=== PATIENT | male | born 1950 | race Caucasian/White ===

== ENCOUNTER → 2016-05-31 | Outpatient (CLI) | payer BC, OTHER ==
[~2016-05-31] MED LIST: ASPEC81 PO; BNC4025 PO
[2016-05-31 09:50] LABS: ESTIMATED AVERAGE GLUCOSE 151 mg/dl; HA1C FLAG Normal (Normal)
[2016-05-31 09:51] LABS: ALT/SGPT 65 U/L (12-78); BLOOD UREA NITROGEN 22 mg/dl (7-18); CARBON DIOXIDE 24 mmol/L (21-32); CHLORIDE 105 mmol/L (98-107); CREATININE 0.97 mg/dl (0.60-1.40); GLUCOSE 131 mg/dl (70-99); POTASSIUM 3.4 mmol/L (3.5-5.1); PROLACTIN 5.66 ng/mL; SODIUM 140 mmol/L (136-145)
[2016-05-31 10:02] LABS: ALB/GLOB RATIO 1.3 (0.9-2); ALKALINE PHOSPHATASE 73 U/L (45-117); AST/SGOT 30 U/L (15-37); CHOLESTEROL 156 mg/dl (0-200); CHOLESTEROL/HDL RATIO 3.3; HDL CHOLESTEROL 47 mg/dl; LDL CHOLESTEROL CALCULATED 91 mg/dl; TRIGLYCERIDES 92 mg/dl (0-150); VERY LOW DENSITY LIPOPROT CALC 18 mg/dl
[2016-05-31 10:09] LABS: RATIO 11.7 mcg/mg (0-30.0)
== END | disposition home or self-care (01) ==
LOC: C.LAB1850 06:59
PROVIDERS: ATTEND Internal Medicine Endocrinology, Diabetes & Metabolism
DX: N52.9 Male erectile dysfunction, unspecified (principal); E11.9 Type 2 diabetes mellitus without complications; E66.9 Obesity, unspecified; E29.1 Testicular hypofunction; E88.81 Metabolic syndrome and other insulin resistance

== ENCOUNTER → 2016-10-01 | Outpatient (CLI) | payer BC, OTHER ==
[2016-10-01 10:06] LABS: ESTIMATED AVERAGE GLUCOSE 108 mg/dl; HA1C FLAG Normal (Normal)
== END | disposition home or self-care (01) ==
LOC: C.LAB1850 06:47
PROVIDERS: ATTEND Internal Medicine Endocrinology, Diabetes & Metabolism
DX: E11.9 Type 2 diabetes mellitus without complications (principal); E78.5 Hyperlipidemia, unspecified

== ENCOUNTER → 2017-04-05 | Outpatient (CLI) | payer BC, OTHER ==
[2017-04-05 09:07] LABS: BASO % 0.4 %; BASO ABS # 0.02 K/uL (0-0.2); COMPLETE YES; EOS % 2.2 %; HEMATOCRIT 47.7 % (42-52); IG% 0.2 %; LYMPH ABS # 1.64 K/uL (1.2-3.4); MEAN CELL VOLUME 85.5 fL (80-100); MEAN CORPUSCULAR HEMOGLOBIN 29.4 pg (25-34); MEAN CORPUSCULAR HGB CONC 34.4 g/dl (32-36); MEAN PLATELET VOLUME 10.5 fL (7.4-10.4); MONO % 8.2 %; PLATELET COUNT 201 K/uL (130-400); RED BLOOD COUNT 5.58 M/uL (4.7-6.1); WHITE BLOOD COUNT 5.46 K/uL (4.8-10.8)
[2017-04-05 09:11] LABS: URINE APPEARANCE CLEAR (CLEAR); URINE BILIRUBIN NEG (NEG); URINE COLOR YELLOW; URINE EPITHELIAL CELL AUTO 0-5 /lpf (0-5); URINE NITRITE NEG (NEG); URINE SPECIFIC GRAVITY 1.023 (1.000-1.030); UROBILINOGEN NEG (NEG)
[2017-04-05 09:13] LABS: MANUAL MICROSCOPIC REQUIRED? NO; REVIEW REQ? NO
[2017-04-05 09:29] LABS: ALT/SGPT 28 U/L (12-78); AST/SGOT 19 U/L (15-37); BLOOD UREA NITROGEN 16 mg/dl (7-18); BUN/CREATININE RATIO 16.4 (10-20); CALCIUM 9.8 mg/dl (8.5-10.1); CARBON DIOXIDE 28 mmol/L (21-32); CHLORIDE 106 mmol/L (98-107); CHOLESTEROL 110 mg/dl (0-200); CREATININE 0.96 mg/dl (0.60-1.40); GLUCOSE 97 mg/dl (70-99); POTASSIUM 3.5 mmol/L (3.5-5.1); SODIUM 141 mmol/L (136-145)
[2017-04-05 09:40] LABS: HDL CHOLESTEROL 54 mg/dl; LDL CHOLESTEROL CALCULATED 39 mg/dl; PROSTATE SPECIFIC ANTIGEN 0.423 ng/ml (0.000-4.000); TRIGLYCERIDES 83 mg/dl (0-150); VERY LOW DENSITY LIPOPROT CALC 17 mg/dl
[2017-04-06 07:33] LABS: ESTIMATED AVERAGE GLUCOSE 114 mg/dl; HA1C FLAG Normal (Normal)
== END | disposition home or self-care (01) ==
LOC: C.LAB 07:05
PROVIDERS: ATTEND Internal Medicine
DX: R42 Dizziness and giddiness (principal)

== ENCOUNTER 2018-07-21 10:35 | Observation (INO) ==
[2018-07-21] MEDS ORDERED: ASPIRIN CHEW 324 MG PO STA (11:33)
[2018-07-21 11:41] LABS: Basophils # (auto) 0.01 K/uL (0-0.2); Basophils % (auto) 0.2 %; Eosinophils # (auto) 0.11 K/uL (0-0.5); Eosinophils % (auto) 1.7 %; Hematocrit (blood only) 44.1 % (42-52); Hemoglobin 15.5 g/dL (14.0-18.0); Immature Granulocytes # (auto) 0.02 K/uL (0.00-0.02); Immature Granulocytes % (auto) 0.3 %; Lymphocytes # (auto) 1.83 K/uL (1.2-3.4); Lymphocytes % (auto) 27.5 %; Mean Corpuscular Hgb Conc 35.1 g/dL (32-36); Mean Corpuscular Volume 80.9 fL (80-100); Mean Platelet Volume 10.3 fL (7.4-10.4); Monocytes % (auto) 7.5 %; Neutrophils # (auto) 4.18 K/uL (1.4-6.5); Neutrophils % (auto) 62.8 %; Platelet Count 261 K/uL (130-400); RDW Coefficient of Variation 13.9 % (11.5-14.5); RDW Standard Deviation 40.9 fL (36.4-46.3); Red Blood Count 5.45 M/uL (4.7-6.1); White Blood Count 6.65 K/uL (4.8-10.8)
[2018-07-21 11:56] LABS: Alanine Aminotransferase 78 U/L (12-78); Aspartate Aminotransferase 41 U/L (15-37); BUN Creatinine Ratio 16.8 (10-20); Blood Urea Nitrogen 22 mg/dl (7-18); Calcium 8.7 mg/dl (8.5-10.1); Carbon Dioxide 25 mmol/L (21-32); Chloride 100 mmol/L (98-107); Creatinine Clr Calc Pharmacy 68.1 ml/min; Est GFR (African American) 65.6; Est GFR (Non-African American) 56.6; Glucose 235 mg/dl (70-99); Potassium 3.4 mmol/L (3.5-5.1); Sodium 135 mmol/L (136-145)
[2018-07-21 12:01] LABS: Albumin Globulin Ratio 1.1 (0.9-2); Alkaline Phosphatase 93 U/L (45-117); Bilirubin,Total 0.7 mg/dl (0.2-1); Globulin 3.6 gm/dl (2.5-4.0); Total Protein 7.6 gm/dl (6.4-8.2); Troponin I < 0.015 ng/ml (0-0.045)
--- NOTE | 2018-07-21 12:16 | XRay Report ---
SINGLE VIEW CHEST CLINICAL HISTORY: Atypical chest pain. Dyspnea. FINDINGS: 2 AP, portable, upright chest radiographs are compared to study dated 01/14/2007. The cardiom ediastinal silhouette is unremarkable. There is left basilar scarring/atelectasis. The lungs and pleu ral spaces are otherwise clear. No pneumothorax is seen. The bony thorax is grossly intact. IMPRESSION: No active disease in the chest. Electronically signed by: Marcello Juarez M.D. 07/21/2018 12:14 PM
--- NOTE | 2018-07-21 14:35 | History & Physical Report ---
Date of Service July 21, 2018 Assessment & Plan (1) Abnormal EKG: Concerning in the setting of sx related in HPI given pt is DM, HTN, HLD at baseline with progressive generalized fatigue He is also using tadalafil for erectile dysfunction and testosterone Trop neg x1, serials pending CXR neg Mg pending Stress ECHO in AM if trops neg Monitor on tele (2) Chest pain: More of a tightness Workup as per above (3) Hypokalemia: Minimal Replace PO and monitor (4) DM type 2 (diabetes mellitus, type 2): Elevated BS Metformin only SSI PRN A1c pending (5) TOBIAS (obstructive sleep apnea): No testing or prior dx Could lead to above sx Overnight pulse ox pending Likely need formal sleep study on d/c (6) Hyperlipidemia: continue home meds Lipid panel in AM Statin use could lead to some of pt's sx Advised for ubiquinol form of CoQ10 as outpt (7) HTN (hypertension): continue home meds (8) Vertigo: Hx of same, monitor (9) DVT prophylaxis: SCDs History of Present Illness Primary Care Provider: Reji Soriano MD 68 y/o M c/o chest tightness and SOB. Pt states he woke up this AM and felt fine. He went to work and around 7am while he was walking across a flat surface he suddenly felt like he had been walking up hill for an extended period. He was SOB, which is unusual for him. Then he developed some L shoulder tightness "like I had pulled a muscle". He rested and this improved. He continued about his day but then again noted the feeling of overexertion with SOB while walking to his break. 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 He has never had anything like this in the past. Pt states that his had some sort of URI and he had this starting last Saturday, just feeling generally run down and congested with a cough. He had no SOB or similar feelings like this. He did stay home from work for a few days. He worked on Saturday but still wasn't feeling quite his usual. He didn't do as much this weekend, but he felt that was due to this viral illness. He had no SOB, overexertion issues, or chest tightness. He states that over the last 6 months he has had a general decline in energy. He used to come home from work and feel like he wanted to do other things around the house, but now he comes home and feels like he could just go to bed. Pt states that he had some sort of abn EKG in 2006. He had a stress test that was WNL at that time. He has no other cardiac hx. He is supposed to take aspirin 81mg, but he does not take this. Pt notes that his BS generally run in the 140s. He had stopped checking BS for a while as they had been stable. While he was sick last week, BS were in the 200s. This has continued into the weekend. states that pt snores quite heavily. She states that there are times when he stops breathing and chokes. She states the snoring is slightly less when in a chair to sleep vs the bed. Pt has a hx of positional vertigo. He had not had issues with this for some time, but started to have episode when turning his head to the left a few weeks ago. This has been intermittent. It has not been present today. Allergies Allergy/AdvReac Type Severity Reaction Status Date / Time pseudoephedrine AdvReac Severe Rash Unverified 07/21/18 12:05 [From [facility]] Home Medications Home Medications Medication Instructions Recorded Confirmed Type allopurinol 300 mg PO QAM 07/21/18 07/21/18 History aspirin 81 mg PO QAM 07/21/18 07/21/18 History atorvastatin 20 mg PO QAM 07/21/18 07/21/18 History ibuprofen [Advil] 200 mg PO QID PRN MDD . 07/21/18 07/21/18 History metformin 1,000 mg PO BID 07/21/18 07/21/18 History olmesartan-hydrochlorothiazide 1 tab PO QAM 07/21/18 07/21/18 History tadalafil 20 mg PO Q3D 07/21/18 07/21/18 History testosterone 2 pump TOPICAL QAM 07/21/18 07/21/18 History Past Med/Surg History Family History Father CVA (cerebral vascular accident) Social History Feels Safe at Home: Yes Smoking Status: Current some day smoker Hx Alcohol Use: No Hx Substance Use: No Review of Systems Pertinent positives and negatives reviewed in HPI--all others negative Physical Exam Vital Signs (Past 24 Hours): Last Vital Signs Temp 36.8 C 07/21/18 10:45 Pulse 67 07/21/18 13:05 Resp 13 07/21/18 13:05 BP 150/95 H 07/21/18 13:05 Pulse Ox 98 07/21/18 11:06 Constitutional: WD/WN, vitals as above Eyes: normal visual ruiz by confrontation and + anicteric sclerae Neck: normal visual inspection and trachea midline Respiratory: normal respiratory effort, lungs clear to auscultation Cardiovascular: Rate/Rhythm: regular rate and regular rhythm Gastrointestinal (Abdomen): Inspection/Auscultation: abdomen not distended Percussion/Palpation: abdomen soft; abdomen nontender Musculoskeletal: Head/Neck/Chest: normocephalic and head atraumatic; normal palpation of chest wall (no TTP along L chest wall into shoulder) negative for edema, peripheral pulses intact Skin: no rashes, warm and dry Neurologic: awake; not confused Speech / Cognition: normal speech Psychiatric: A+Ox3, euthymic affect Results & Data Diagnostic Findings CXR: neg for acute ECG Additional Comments: Bigeminy with ST depression anterolaterally Code Status & VTE Plan Code Status DNR/DNI per pt, is present and agrees VTE Prophylaxis Plan VTE Prophylaxis will be ordered: Yes
--- NOTE | 2018-07-21 16:31 | Emergency Department Note ---
Entered by Armando Mcdowell acting as a scribe for Ryne Selby DO History of Present Illness General Chief complaint: Shortness of Breath/Dyspnea Stated complaint: SOB Source: patient History of Present Illness Provider complaint: shortness of breath Onset (ago): day(s) (today around [id number]) Location: chest Pain Consistency: + other (episode) Maximum Pain Intensity: 3 Quality: + other (shortness of breath) Relieved By: + rest Exacerbated By: + movement Associated symptoms: + denies other symptoms (abdominal pain, diarrhea, urinary symptoms, jaw pain, arm pain) and + other (chest tightness); no nausea/vomiting Treatments prior to arrival: none The patient is a 68 year old male who presents to the Emergency Room with complaints of shortness of breath that started around [id number] this morning. The patient reports that he states he was walking around this morning and noticed he was breathing harder than he normally would. He further reports a tightness in his chest, but denies any pain. He reports frequent burping as well after having a bad of peanuts and water in the morning. He denies ever experiencing this before. The patient also denies any arm pain, jaw pain, abdominal pain, nausea, vomiting, diarrhea, or urinary symptoms. The patient admits to a medical history of diabetes, hypertension, and high cholesterol. He denies any history of cardiac issues including any stent placement. The patient reports that rest alleviated his pain, but states that exertion exacerbates his pain. He denies taking any aspirin today. The patient reports smoking cigars occasionally. Home Medications Home Medications Medication Instructions Recorded Confirmed Type allopurinol 300 mg PO QAM 07/21/18 07/21/18 History aspirin 81 mg PO QAM 07/21/18 07/21/18 History atorvastatin 20 mg PO QAM 07/21/18 07/21/18 History ibuprofen [Advil] 200 mg PO QID PRN MDD . 07/21/18 07/21/18 History metformin 1,000 mg PO BID 07/21/18 07/21/18 History olmesartan-hydrochlorothiazide 1 tab PO QAM 07/21/18 07/21/18 History tadalafil 20 mg PO Q3D 07/21/18 07/21/18 History testosterone 2 pump TOPICAL QAM 07/21/18 07/21/18 History Allergies Allergy/AdvReac Type Severity Reaction Status Date / Time pseudoephedrine AdvReac Severe Rash Unverified 07/21/18 12:05 [From [facility]] Past Med/Surg History Medical History DM type 2 (diabetes mellitus, type 2) HTN (hypertension) Hyperlipidemia Family History Father CVA (cerebral vascular accident) Social History Feels Safe at Home: Yes Smoking Status: Current some day smoker Hx Alcohol Use: No Hx Substance Use: No Review of Systems See HPI for pertinent positives & negatives. and A total of 10 systems reviewed and were otherwise negative Physical Exam Vital Signs Vital Signs - 24 hr 07/21/18 10:45 07/21/18 10:54 07/21/18 11:00 Temperature 36.8 C Temperature Source Oral Sepsis New/Unexplained Change in Mental Status No Sepsis Action Taken by Nursing No Action Required Pulse Rate 86 86 85 Pulse Rhythm Regular Pulse Strength Normal Respiratory Rate 20 19 14 Respiratory Effort / Characteristics Non-Labored Spontaneous Respiratory Depth Normal Respiratory Pattern Regular Blood Pressure 140/82 146/84 H Blood Pressure Mean 101 104 Pulse Oximetry 97 Oxygen Delivery Method Room Air 07/21/18 11:04 07/21/18 11:06 07/21/18 11:30 Temperature Temperature Source Oral Sepsis New/Unexplained Change in Mental Status Sepsis Action Taken by Nursing Pulse Rate 82 Pulse Rhythm Pulse Strength Respiratory Rate 24 Respiratory Effort / Characteristics Non-Labored Respiratory Depth Normal Respiratory Pattern Regular Blood Pressure Blood Pressure Mean Pulse Oximetry 98 Oxygen Delivery Method Room Air Room Air 07/21/18 11:33 07/21/18 12:00 07/21/18 12:30 Temperature Temperature Source Sepsis New/Unexplained Change in Mental Status Sepsis Action Taken by Nursing Pulse Rate 74 73 Pulse Rhythm Pulse Strength Respiratory Rate 18 16 Respiratory Effort / Characteristics Respiratory Depth Respiratory Pattern Blood Pressure Blood Pressure Mean Pulse Oximetry Oxygen Delivery Method Room Air 07/21/18 13:00 07/21/18 13:05 07/21/18 15:42 Temperature Temperature Source Sepsis New/Unexplained Change in Mental Status Sepsis Action Taken by Nursing Pulse Rate 64 67 61 Pulse Rhythm Pulse Strength Respiratory Rate 11 L 13 18 Respiratory Effort / Characteristics Respiratory Depth Respiratory Pattern Blood Pressure 150/95 H 129/74 Blood Pressure Mean 113 Pulse Oximetry 97 Oxygen Delivery Method Room Air GENERAL: Sitting up in bed, alert, well appearing, well nourished, no distress, non-toxic EYE EXAM: normal conjunctiva. PERRL and EOM's grossly intact. OROPHARYNX: no exudate, no erythema, lips, buccal mucosa, and tongue normal and mucous membranes are moist NECK: supple, no nuchal rigidity, no adenopathy, non-tender LUNGS: Clear to auscultation. Normal chest wall mechanics HEART: no murmurs, S1 normal and S2 normal ABDOMEN: abdomen soft, non-tender, normo-active bowel, sounds, no masses, no rebound or guarding. BACK: Back is symmetrical on inspection and there is no deformity, no midline tenderness, no CVA tenderness. SKIN: no rashes and no bruising UPPER EXTREMITIES: upper extremities are grossly normal. Radial pulses equal bilaterally. LOWER EXTREMITIES: No pitting edema. Calves are equal bilaterally. NEURO EXAM: Normal sensorium, cranial nerves II-XII grossly intact, normal speech, no gross weakness of arms, no gross weakness of legs. Course ED COURSE: Vital signs were reviewed and showed the patient is normotensive. The patients medical record was reviewed The above diagnostic studies were performed and reviewed. ED treatments and interventions as stated above. 1128: The patient was evaluated in room D1B. A complete history and physical examination was performed. 1305: I reviewed the patient's case with Dr. Bermeo, [facility]. She will evaluate the patient for further management. 1325: Upon reevaluation, the patient is resting comfortably. I discussed my findings with the patient and he understands and agrees with the treatment plan. Based on the patients age, coexisting illnesses, exam and lab findings the decision to treat as an inpatient was made. The patient remained stable while under my care. The patient will be evaluated for further management. Consultations Consultation #1: Dr. Bermeo [facility] Time: 13:05 Administered Medications Discontinued Medications Aspirin (Aspirin) 324 mg PO NOW STA Stop: 07/21/18 11:34 Last Admin: 07/21/18 11:38 Dose: 324 mg Documented by: [id number] Medical Decision Making Differential Diagnosis Differential diagnosis: Etiologies such as cardiac ischemia, aortic dissection, pulmonary embolism, pneumonia, pneumothorax, musculoskeletal, infections, pericarditis, myocarditis, esophageal rupture, gastrointestinal, as well as others were entertained. Medical Records Attestation: I reviewed the patient's medical records. Home Medications Current Medication List: was personally reviewed by me Laboratory Data Attestation: I reviewed the patient's lab results. Result diagrams: 07/21/18 11:00 07/21/18 11:00 Lab Results 07/21/18 07/21/18 Range/Units 11:00 11:00 WBC 6.65 (4.8-10.8) K/uL RBC 5.45 (4.7-6.1) M/uL Hgb 15.5 (14.0-18.0) g/dL Hct 44.1 (42-52) % MCV 80.9 (80-100) fL MCH 28.4 (25-34) pg MCHC 35.1 (32-36) g/dL RDW Std Deviation 40.9 (36.4-46.3) fL RDW Coeff of Tenzin 13.9 (11.5-14.5) % Plt Count 261 (130-400) K/uL MPV 10.3 (7.4-10.4) fL Immature Gran % (Auto) 0.3 % Neut % (Auto) 62.8 % Lymph % (Auto) 27.5 % Hawkins % (Auto) 7.5 % Eos % (Auto) 1.7 % Baso % (Auto) 0.2 % Immature Gran # (Auto) 0.02 (0.00-0.02) K/uL Neut # (Auto) 4.18 (1.4-6.5) K/uL Lymph # (Auto) 1.83 (1.2-3.4) K/uL Hawkins # (Auto) 0.50 (0.11-0.59) K/uL Eos # (Auto) 0.11 (0-0.5) K/uL Baso # (Auto) 0.01 (0-0.2) K/uL Sodium 135 L (136-145) mmol/L Potassium 3.4 L (3.5-5.1) mmol/L Chloride 100 (98-107) mmol/L Carbon Dioxide 25 (21-32) mmol/L Anion Gap 10.0 (3-11) BUN 22 H (7-18) mg/dl Creatinine 1.29 (0.6-1.4) mg/dl Est Cr Clr Drug Dosing 68.1 ml/min Est GFR ( Amer) 65.6 Est GFR (Non-Af Amer) 56.6 BUN/Creatinine Ratio 16.8 (10-20) Glucose 235 H (70-99) mg/dl Calcium 8.7 (8.5-10.1) mg/dl Total Bilirubin 0.7 (0.2-1) mg/dl AST 41 H (15-37) U/L ALT 78 (12-78) U/L Alkaline Phosphatase 93 (45-117) U/L Troponin I < 0.015 (0-0.045) ng/ml Total Protein 7.6 (6.4-8.2) gm/dl Albumin 4.0 (3.4-5.0) gm/dl Globulin 3.6 (2.5-4.0) gm/dl Albumin/Globulin Ratio 1.1 (0.9-2) Lipase 128 (73-393) U/L Imaging Data Radiologist's Impression: Radiology results as stated below per my review and the radiologist's interpretation: SINGLE VIEW CHEST CLINICAL HISTORY: Atypical chest pain. Dyspnea. FINDINGS: 2 AP, portable, upright chest radiographs are compared to study dated 01/14/2007. The cardiomediastinal silhouette is unremarkable. There is left basilar scarring/atelectasis. The lungs and pleural spaces are otherwise clear. No pneumothorax is seen. The bony thorax is grossly intact. IMPRESSION: No active disease in the chest. Electronically signed by: Marcello Juarez M.D. 07/21/2018 12:14 PM ECG Data Attestation: I personally reviewed and interpreted this ECG as follows: Indication: SOB/dyspnea Rate (beats per minute): 79 Rhythm: sinus rhythm Findings: + other (T-wave flattening in high lateral lead) and + ST depression ( anterior and lateral leads) Comparison ECG Date: from (01/15/07) Change: the following changes noted (all new) Blood Pressure Blood Pressure Findings: Normal blood pressure Blood Pressure Disposition: did not require urgent referral MDM Narrative Patient is a 60-year-old male who presents the ER for shortness of breath and chest tightness which started around 7 AM this morning. Does have some associated burping. Labs were obtained and showed no significant leukocytosis or anemia. BMP with mild hypokalemia. No significant transaminitis. Bilirubin was normal. Lipase was unremarkable. Chest x-ray unremarkable. EKG with new ST segment changes. He does have a history of diabetes, hypertension and hyperlipidemia. He was updated bedside. Completely chest pain-free prior to arrival. He was given aspirin. He was admitted to the hospital for further workup. Impression & Plan Chest pain, Abnormal EKG Discharge Plan Visit Data *Final* Discharge Date/Time: 07/21/18 15:42 Chief Complaint: Shortness of Breath/Dyspnea Stated Complaint: SOB ED Provider: Ryne Selby Discharge Problem: Chest pain, Abnormal EKG Patient Disposition: Admitted As Inpatient Discharge Instructions Interventions: ED Discharge Assessment Last Done: 07/21/18 15:42 Discharge Problem: Chest pain Qualifiers: Chest pain type: unspecified Qualified Code(s): R07.9 - Chest pain, unspecified The scribe's documentation has been prepared under my direction and personally reviewed by me in its entirety. I confirm that the note above accurately reflects all work, treatment, procedures, and medical decision making performed by me.
[2018-07-21] MEDS ORDERED: MAGNESIUM HYDROXIDE SUSP 30 ML UDC PO PRN (16:33)
[2018-07-21] MEDS ORDERED: ACETAMINOPHEN 325 MG TAB PO PRN (16:33)
[2018-07-21] MEDS ORDERED: GLUCAGON FOR INJ 1 MG VIAL SQ PRN (16:33)
[2018-07-21] MEDS ORDERED: GLUCOSE 10 TABS/TUBE PO PRN (16:33)
[2018-07-21] MEDS ORDERED: GLUCOSE 40% GEL 15 GM TUBE PO PRN (16:33)
[2018-07-21] MEDS ORDERED: NITROGLYCERIN SL 0.4 MG/TAB TAB SL PRN (16:33)
[2018-07-21] MEDS ORDERED: DEXTROSE 50% 50 ML SYRINGE IV PRN (16:33)
[2018-07-21] MEDS ORDERED: IBUPROFEN 200 MG TAB PO PRN (16:33)
[2018-07-21] MEDS ORDERED: ONDANSETRON INJ 2 MG/ML 2 ML VIAL IV PRN (16:33)
[2018-07-21] MEDS ORDERED: CARBOHYDRATES FOR HYPOGLYCEMIA PO PRN (16:33)
[2018-07-21] MEDS ORDERED: POTASSIUM CHLORIDE 10 MEQ TABCR PO STA (16:52)
[2018-07-21] MEDS: METFORMIN HCL 500 MG TAB PO SCH (17:32)
[2018-07-21] MEDS: INSULIN ASPART 100 UNITS/ML 3 ML PEN SC SCH ×2 (17:49→20:29)
[2018-07-22 07:08] LABS: BUN Creatinine Ratio 19.7 (10-20); Calcium 8.8 mg/dl (8.5-10.1); Creatinine Clr Calc Pharmacy 85.7 ml/min; Est GFR (African American) 88.2; Est GFR (Non-African American) 76.1; Potassium 3.3 mmol/L (3.5-5.1)
[2018-07-22 07:27] LABS: Estimated Average Glucose 212 mg/dl
[2018-07-22] MEDS: INSULIN ASPART 100 UNITS/ML 3 ML PEN SC SCH ×3 (08:36→17:17)
[2018-07-22] MEDS: METFORMIN HCL 500 MG TAB PO SCH (09:49)
--- NOTE | 2018-07-22 11:59 | Cardiology Consultation ---
Date of Consultation July 22, 2018 Assessment & Plan (1) MIRANDA (dyspnea on exertion): He had some dyspnea on exertion starting yesterday morning, this was while walking on the flat and was quite unusual for him. So far no obvious etiology is identified. It could be consistent with an anginal equivalent, especially since he also has some left shoulder discomfort, but it could be something else altogether. He has not had recurrence while here in the hospital at rest. I think we need to do an echocardiogram and a stress test, which I will arrange as a stress echo. (2) Chest pain: Although he does not strictly have chest pain he does have a left shoulder tightness which occurred with her shortness of breath prior to admission and then occurred later yesterday morning at rest. This is worrisome in that it could be anginal. He does have risk factors for coronary disease although he is treated with a statin. His cardiac enzymes however are negative x3, the discomfort lasted for some time (perhaps several hours overall) which makes it l ess likely that this is cardiac in etiology. (3) Abnormal EKG: His electrocardiogram is abnormal showing inferolateral ST depression, by itself this is worrisome however in view of it being unchanged here in the hospital and the same as it was several years ago in the office (May and November 2015) I have less concerned about it. This may simply be his pattern. (4) Hyperlipidemia: He has hyperlipidemia but is on atorvastatin. If he does have coronary disease (which he may) this will be required and perhaps should be increased, however if his stress test is negative he should still take the statin as a preventative measure. (5) HTN (hypertension): He does have hypertension, his blood pressure currently is somewhat elevated. We may want to alter his medical regimen, I have not done that as yet. History of Present Illness Reason for Consultation: MIRANDA and exertional chest tightness Attending Physician: Susana Doan MD History of Present Illness This is a very pleasant 60-year-old gentleman who has a history of diabetes, hypertension, hypercholesterolemia but no known cardiac history. He did have an evaluation February 15, 2015 when he had a treadmill stress echo which was negative for ischemia at 87% of his maximal predicted heart rate. Of note he had inferolateral ST depression on his resting ECG at the time. He exercised for 9 minutes. He presented with exertional shortness of breath starting at 630 to 7:00 on the morning of July 21, 2018. This occurred when he was walking on a flat surface, was also associated with some left shoulder tightness and this all improved with rest. Later on he had the same symptoms while at rest and came into the emergency room. He also reports that he has been somewhat more fatigued lately, which she feels might be age, but he is more tired at the end of the day than he used to be. He does not seem to have specific problems with doing work or exertion and walks quite a bit at work. Allergies Allergy/AdvReac Type Severity Reaction Status Date / Time pseudoephedrine AdvReac Severe Rash Unverified 07/21/18 12:05 [From [facility]] Home Medications Home Medications Medication Instructions Recorded Confirmed Type allopurinol 300 mg PO QAM 07/21/18 07/21/18 History aspirin 81 mg PO QAM 07/21/18 07/21/18 History atorvastatin 20 mg PO QAM 07/21/18 07/21/18 History ibuprofen [Advil] 200 mg PO QID PRN MDD . 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 Recent onset of dyspnea on exertion as described, no exertional chest pain although he does have exertional left shoulder discomfort. No orthopnea or PND or peripheral edema. No GI complaints, no bleeding. No neurologic complaints such as TIA or stroke symptoms. Other systems negative. Physical Exam Vital Signs (Past 24 Hours): Last Vital Signs Temp 36.4 C L 07/22/18 11:04 Pulse 71 07/22/18 11:04 Resp 18 07/22/18 11:04 BP 146/79 H 07/22/18 11:04 Pulse Ox 94 07/22/18 11:04 Physical Exam: Constitutional: Alert, cooperative and in no distress. HEENT: Unremarkable Neck: No jugular venous distention, carotid pulses are normal and equal bilaterally without bruits. Pulmonary: Clear to auscultation bilaterally. Cardiac: Regular rhythm with no murmur, gallop or rub. Abdomen: Soft, nontender with normal bowel sounds. Extremities: No edema. Distal pulses intact. Neurologic: No focal findings. Gait is steady. Skin: No rash, ecchymoses or petechiae. Results & Data Diagnostic Findings ECG: Him, inferolateral ST depression which by itself is worrisome however it was also present on his prior electrocardiograms in our office from several years ago. Telemetry: Sinus rhythm, no significant arrhythmia (1) Chest pain Chest pain type: unspecified Qualified Code(s): R07.9 - Chest pain, unspecified
[2018-07-22] MEDS ORDERED: PERFLUTREN LIPID MICROSPHERE (DEFINITY) IV ONE (14:13)
--- NOTE | 2018-07-22 14:24 | Discharge Summary ---
Date of Service July 22, 2018 Admission HPI Per Admitting Provider 68 y/o M c/o chest tightness and SOB. Pt states he woke up this AM and felt fine. He went to work and around 7am while he was walking across a flat surface he suddenly felt like he had been walking up hill for an extended period. He was SOB, which is unusual for him. Then he developed some L shoulder tightness "like I had pulled a muscle". He rested and this improved. He continued about his day but then again noted the feeling of overexertion with SOB while walking to his break. 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 He has never had anything like this in the past. Pt states that his had some sort of URI and he had this starting last Saturday, just feeling generally run down and congested with a cough. He had no SOB or similar feelings like this. He did stay home from work for a few days. He worked on Saturday but still wasn't feeling quite his usual. He didn't do as much this weekend, but he felt that was due to this viral illness. He had no SOB, overexertion issues, or chest tightness. He states that over the last 6 months he has had a general decline in energy. He used to come home from work and feel like he wanted to do other things around the house, but now he comes home and feels like he could just go to bed. Pt states that he had some sort of abn EKG in 2006. He had a stress test that was WNL at that time. He has no other cardiac hx. He is supposed to take aspirin 81mg, but he does not take this. Pt notes that his BS generally run in the 140s. He had stopped checking BS for a while as they had been stable. While he was sick last week, BS were in the 200s. This has continued into the weekend. states that pt snores quite heavily. She states that there are times when he stops breathing and chokes. She states the snoring is slightly less when in a chair to sleep vs the bed. Pt has a hx of positional vertigo. He had not had issues with this for some time, but started to have episode when turning his head to the left a few weeks ago. This has been intermittent. It has not been present today. Admission Exam Per Admitting Provider Constitutional: WD/WN, vitals as above Eyes: normal visual ruiz by confrontation and + anicteric sclerae Neck: normal visual inspection and trachea midline Respiratory: normal respiratory effort, lungs clear to auscultation Cardiovascular: Rate/Rhythm: regular rate and regular rhythm Gastrointestinal (Abdomen): Inspection/Auscultation: abdomen not distended Percussion/Palpation: abdomen soft; abdomen nontender Musculoskeletal: Head/Neck/Chest: normocephalic and head atraumatic; normal palpation of chest wall (no TTP along L chest wall into shoulder) negative for edema, peripheral pulses intact Skin: no rashes, warm and dry Neurologic: awake; not confused Speech / Cognition: normal speech Psychiatric: A+Ox3, euthymic affect Principal Diagnosis Dyspnea on Exertion Discharge Exam Constitutional WD/WN, vitals as above Eyes + anicteric sclerae Neck normal visual inspection and trachea midline Respiratory normal respiratory effort, lungs clear to auscultation Cardiovascular Rate/Rhythm: regular rate and regular rhythm Gastrointestinal (Abdomen) Inspection/Auscultation: abdomen not distended Percussion/Palpation: abdomen soft; abdomen nontender Musculoskeletal Head/Neck/Chest: normocephalic and head atraumatic; normal palpation of chest wall (no TTP along L chest wall into shoulder) Skin no rashes, warm and dry Neurologic awake; not confused Speech / Cognition: normal speech Psychiatric A+Ox3, euthymic affect Discharge Data Allergies Allergy/AdvReac Type Severity Reaction Status Date / Time pseudoephedrine AdvReac Severe Rash Unverified 07/21/18 12:05 [From [facility]] Consultations 07/21/18 13:00 ED Decision to Admit Stat 07/22/18 10:42 Consult Cardiology Routine Hospital Course (1) MIRANDA (dyspnea on exertion): 68 y/o M with h/o DM, HLD and HTN presented with chest pain and MIRANDA Chest Pain with MIRANDA and abnormal ekg showing inferolateral ST depression Kept overnight on Tele. Troponin came back negative. Cardio consulted due to high risk factor for CAD. Underwent stress echo and it came back negative. symptoms possibly secondary to deconditioning. Hyprelipidemia continue atorvastatin. Hypertension continue home meds. outpatient follow up. (2) Chest pain: (3) Abnormal EKG: (4) Hyperlipidemia: (5) HTN (hypertension): Total Time Total Time Spent Total Time Spent (In Minutes): 60 Discharge Plan Discharge Items Patient Disposition: Home - Self-Care Reason For Visit: SOB Discharge Diagnosis: Dyspnea on exertion, chest pain - ruled out for acute coronary syndrome. Symptoms possibly from deconditioning Discharge Goals: Improve disease control Activity: Resume your previous activity Non-emergency contact: Primary Care Provider Call non-emergency contact if: you have any medication questions and your symptoms worsen Follow-up/Referrals: Reji Soriano MD [Primary Care Provider] - Diet: Carb Consistent or DM2 and Heart Healthy Addtl Provider Instructions: You were kept in the hospital due to concern of heart disease. Heart monitor and blood test came back normal. Stress echo test was normal as well. We suspect that your symptoms were due to deconditioning. Please work on controlling your blood sugar. Please follow up with your family physician in one week. Prescriptions: Continued metformin 500 mg tablet 1,000 mg PO BID RF: 0 atorvastatin 20 mg tablet 20 mg PO QAM RF: 0 aspirin 81 mg Tablet,Delayed Release (Dr/Ec) 81 mg PO QAM RF: 0 ibuprofen [Advil] 200 mg Tablet 200 mg PO QID MDD . PRN (Reason: Pain) RF: 0 allopurinol 300 mg tablet 300 mg PO QAM RF: 0 olmesartan-hydrochlorothiazide 40-25 mg tablet 1 tab PO QAM RF: 0 tadalafil 20 mg tablet 20 mg PO Q3D RF: 0 testosterone 12.5 mg/ 1.25 gram (1 %) gel in metered-dose pump 2 pump topical QAM RF: 0 Stand-Alone Forms: [facility] Discharge Orders: Discharge Order (Routine); Ordered 07/22/18 Ordered By: Susana Doan Admission Data Admit Date/Time: 07/21/18 14:19 Attending Provider: Susana Doan Admit Provider: Geri Bermeo Primary Care Provider: Reji Soriano Other Providers: Geri Bermeo ; Faisal Pang Service: Telemetry Other Interventions: Discharge Summary Assessment (RN) Last Done: 07/22/18 18:42 DC Date/Time DO NOT enter until pt leaves facility: 07/22/18 18:59 Supervising Physician Co-Signing Physician Notes Resident Physician Supervision Note: I independently interviewed and examined the patient and verified the lozano history and physical, reviewed labs and image studies, discussed the case with the resident Dr. Roth and agree with the findings and care plan. Resident Activity Tracking Resident Involvement: Resident Care Provided Care Provided: Adult Hospital Medicine
[2018-07-22] MEDS: OLMESARTAN MEDOXOMIL 40 MG TAB PO SCH ×2 (15:22→15:54)
[2018-07-22] MEDS: hydroCHLOROthiazide 25 MG TAB PO SCH ×2 (15:22→15:55)
[2018-07-22] MEDS: ASPIRIN 81 MG ECTAB PO SCH ×2 (15:22→15:54)
[2018-07-22] MEDS: ALLOPURINOL 300 MG TAB PO SCH ×2 (15:23→15:55)
[2018-07-22] MEDS: ATORVASTATIN 20 MG TAB PO SCH ×2 (15:23→15:55)
== END 2018-07-22 18:59 | disposition home or self-care (01) ==
LOC: ED 10:35 → INTOOBSV 14:19 → 2E 14:19 → SUATTDRO 14:19 → 2E 15:42

== ENCOUNTER 2019-09-02 20:41 | Observation (INO) ==
[2019-09-02 21:30] LABS: Basophils # (auto) 0.02 K/uL (0-0.2); Basophils % (auto) 0.4 %; Eosinophils # (auto) 0.12 K/uL (0-0.5); Eosinophils % (auto) 2.1 %; Hematocrit (blood only) 43.8 % (42-52); Hemoglobin 15.2 g/dL (14.0-18.0); Immature Granulocytes # (auto) 0.01 K/uL (0.00-0.02); Immature Granulocytes % (auto) 0.2 %; Lymphocytes # (auto) 2.18 K/uL (1.2-3.4); Lymphocytes % (auto) 38.6 %; Mean Corpuscular Hemoglobin 28.7 pg (25-34); Mean Corpuscular Hgb Conc 34.7 g/dL (32-36); Mean Corpuscular Volume 82.8 fL (80-100); Monocytes # (auto) 0.59 K/uL (0.11-0.59); Monocytes % (auto) 10.4 %; Neutrophils # (auto) 2.73 K/uL (1.4-6.5); Neutrophils % (auto) 48.3 %; Platelet Count 220 K/uL (130-400); RDW Coefficient of Variation 14.2 % (11.5-14.5); RDW Standard Deviation 42.1 fL (36.4-46.3); Red Blood Count 5.29 M/uL (4.7-6.1); White Blood Count 5.65 K/uL (4.8-10.8)
[2019-09-02 21:41] LABS: Alanine Aminotransferase 68 U/L (12-78); Aspartate Aminotransferase 29 U/L (15-37); BUN Creatinine Ratio 16.7 (10-20); Blood Urea Nitrogen 18 mg/dl (7-18); Calcium 9.8 mg/dl (8.5-10.1); Carbon Dioxide 28 mmol/L (21-32); Chloride 105 mmol/L (98-107); Creatinine Clr Calc Pharmacy 78.4 ml/min; Est GFR (Non-African American) 68.1; Glucose 167 mg/dl (70-99); Magnesium 2.2 mg/dl (1.8-2.4); Potassium 3.2 mmol/L (3.5-5.1); Sodium 138 mmol/L (136-145)
[2019-09-02 21:45] LABS: Albumin Globulin Ratio 1.3 (0.9-2); Alkaline Phosphatase 68 U/L (45-117); Bilirubin,Total 0.5 mg/dl (0.2-1); Globulin 3.1 gm/dl (2.5-4.0); Total Protein 7.1 gm/dl (6.4-8.2); Troponin I < 0.015 ng/ml (0-0.045)
[2019-09-02 21:48] LABS: Partial Thromboplastin Time 28.5 Seconds (21.0-31.0); Prothrombin Time 10.5 Seconds (9.0-12.0)
--- NOTE | 2019-09-02 21:49 | CT Scan Report ---
CT SCAN OF THE BRAIN WITHOUT IV CONTRAST CLINICAL HISTORY: Strokelike symptoms. COMPARISON STUDY: MRI of the brain dated 10/08/2012. TECHNIQUE: Unenhanced axial CT scan of the brain is performed from the vertex to the skull base. A d ose lowering technique was utilized adhering to the principles of ALARA. CT DOSE: 614.27 mGy.cm FINDINGS: Brain parenchyma: The brain parenchyma is normal in appearance. There is no hemorrhage, mass effect, or evidence of acute territorial ischemia by CT criteria. Valera-white matter differentiation is preser bartolome. No extra-axial fluid collection is seen. Ventricles, sulci, cisterns: Normal in configuration. Intracranial vasculature: There is atherosclerotic calcification of the cavernous carotid arteries. Calvarium: Unremarkable. Sinuses and mastoids: The visualized paranasal sinuses are clear. There is a small left mastoid effus ion. The right mastoid air cells are well pneumatized. Orbits: The bony orbits are grossly intact. IMPRESSION: There is no hemorrhage, mass effect, or evidence of acute territorial ischemia by CT coni stephens. ACT 112: Negative or not required by law. Electronically signed by: Marcello Juarez M.D. 09/02/2019 9:48 PM
[2019-09-02] MEDS ORDERED: POTASSIUM CHLORIDE 20 MEQ TABCR PO STA (21:58)
[2019-09-02] MEDS ORDERED: ASPIRIN 81 MG ECTAB PO STA (23:03)
[2019-09-02] MEDS ORDERED: ASPIRIN 81 MG ECTAB PO ONE (23:18)
--- NOTE | 2019-09-02 23:49 | Emergency Department Note ---
History of Present Illness General Chief complaint: Stroke/CVA Symptoms Stated complaint: LEFT SIDE TINGLING IN FACE, EYE PROBLEM Source: patient Mode of arrival: ambulatory Limitations: no limitations History of Present Illness Provider complaint: L facial tingling, L eye reflections Onset (ago): day(s) 1 Location: face and eyes This patient is a 69-year-old male who presents to the emergency department with complaints of left jaw tingling and left eye "reflections." Patient denies any extremity weakness or difficulty walking. He denies any difficulty using his arms. Patient denies any significant headache or nausea. Patient denies any recent illness of fever, cough, shortness of breath or chest pain. Home Medications Home Medications Medication Instructions Recorded Confirmed Type blood sugar diagnostic #10 ea 01/19/19 07/23/19 History lancets 30 gauge #25 ea 01/19/19 06/12/19 History metformin 500 mg tablet 1,000 mg PO BID #2 tab 01/19/19 09/02/19 History olmesartan 20 1 tab PO DAILY #90 tab 07/23/19 09/02/19 Rx mg-hydrochlorothiazide 12.5 mg tablet allopurinol 300 mg tablet 300 mg PO DAILY #90 tab 08/31/19 09/02/19 Rx Allergies Allergy/AdvReac Type Severity Reaction Status Date / Time dextromethorphan Allergy Hives Verified 07/23/19 15:20 guaifenesin Allergy Hives Verified 07/23/19 15:20 pseudoephedrine AdvReac Severe Rash Verified 07/23/19 15:20 [From [facility]] Past Med/Surg History Medical History Benign paroxysmal positional vertigo of left ear (Chronic) Cigar smoker (Chronic) DM type 2 (diabetes mellitus, type 2) Dysfunction of left eustachian tube (Chronic) Episodic tobacco dependence (Chronic) Erectile dysfunction (Chronic) Gout, joint (Chronic) Hearing difficulty of left ear CURRENT ISSUE -HAS FLUID IN EAR HTN (hypertension) Hyperlipidemia 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) Obesity Obesity (Chronic) Premature atrial contraction (Chronic) Primary testicular hypogonadism (Chronic) Sleep apnea Surgical History History of colonoscopy S/P tube myringotomy Family History Father Stroke Lung cancer Hypertension Other specified forms of hearing loss Mother Cancer Sister Hypertension Denies family history of Myocardial infarction Social History Preferred Language: German Communication Ability: Effective 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 and A total of 10 systems reviewed and were otherwise negative Physical Exam Vital Signs Vital Signs - 24 hr 09/02/19 20:45 09/02/19 21:08 09/02/19 22:12 Temperature 36.4 C L Temperature Source Oral Pulse Rate 71 Pulse Rate [Apical] 55 L Respiratory Rate 18 18 Blood Pressure 169/105 H Blood Pressure [Right Arm] 122/66 Blood Pressure Mean 126 Blood Pressure Mean [Right Arm] 84 Pulse Oximetry 96 97 94 Oxygen Delivery Method Room Air Room Air Room Air Sepsis Recent Fever Within 48 Hours No Sepsis New/Unexplained Change in Mental Status No Sepsis Action Taken by Nursing No Action Required 09/02/19 23:00 09/02/19 23:19 Temperature Temperature Source Pulse Rate Pulse Rate [Apical] 57 L 58 L Respiratory Rate 18 18 Blood Pressure Blood Pressure [Right Arm] 135/87 144/68 H Blood Pressure Mean Blood Pressure Mean [Right Arm] 103 93 Pulse Oximetry 95 96 Oxygen Delivery Method Room Air Room Air Sepsis Recent Fever Within 48 Hours Sepsis New/Unexplained Change in Mental Status Sepsis Action Taken by Nursing Vital signs reviewed. General: Well-appearing 69 yo male, in no significant distress. HEENT: No scleral icterus, PERRLA, neck supple. Atraumatic. Cardiovascular: Regular rate and rhythm, no extra sounds. Pulmonary: Clear to auscultation bilaterally, normal work of breathing. Abdomen: Soft, nontender, nondistended, positive bowel sounds. Musculoskeletal: Atraumatic, no peripheral edema. Neurologic: Patient awake alert and oriented x 3. Cranial nerves II through XII are grossly intact, equal strength in all 4 extremities, no pronator drift. Ktebyi-hu-usuo intact Skin: Warm, dry, no rash Course Administered Medications Discontinued Medications Aspirin (Ecotrin Ectab) 81 mg PO NOW STA Stop: 09/02/19 23:04 Last Admin: 09/02/19 23:20 Dose: 81 mg Documented by: [id number] Aspirin (Ecotrin Ectab) Confirm Administered Dose 81 mg PO .STK-MED ONE Stop: 09/02/19 23:19 Last Admin: 09/02/19 23:20 Dose: Not Given Documented by: [id number] Potassium Chloride (Klor-Con M20) 40 meq PO NOW STA Stop: 09/02/19 21:59 Last Admin: 09/02/19 22:07 Dose: 40 meq Documented by: [id number] Medical Decision Making Differential Diagnosis Differential includes acute coronary syndrome, myocardial infarction, CVA, TIA, anemia, infection, pneumonia, UTI, pyelonephritis, poor nutrition, dehydration, electrolyte disturbance,hypoglycemia. Medical Records Attestation: I reviewed the patient's medical records. Home Medications Current Medication List: was personally reviewed by me Laboratory Data Attestation: I reviewed the patient's lab results. Result diagrams: 09/02/19 21:05 09/02/19 21:05 Lab Results 09/02/19 09/02/19 09/02/19 Range/Units 21:05 21:05 21:05 WBC 5.65 (4.8-10.8) K/uL RBC 5.29 (4.7-6.1) M/uL Hgb 15.2 (14.0-18.0) g/dL Hct 43.8 (42-52) % MCV 82.8 (80-100) fL MCH 28.7 (25-34) pg MCHC 34.7 (32-36) g/dL RDW Std Deviation 42.1 (36.4-46.3) fL RDW Coeff of Tenzin 14.2 (11.5-14.5) % Plt Count 220 (130-400) K/uL MPV 10.0 (7.4-10.4) fL Immature Gran % (Auto) 0.2 % Neut % (Auto) 48.3 % Lymph % (Auto) 38.6 % Hinds % (Auto) 10.4 % Eos % (Auto) 2.1 % Baso % (Auto) 0.4 % Immature Gran # (Auto) 0.01 (0.00-0.02) K/uL Neut # (Auto) 2.73 (1.4-6.5) K/uL Lymph # (Auto) 2.18 (1.2-3.4) K/uL Hinds # (Auto) 0.59 (0.11-0.59) K/uL Eos # (Auto) 0.12 (0-0.5) K/uL Baso # (Auto) 0.02 (0-0.2) K/uL PT 10.5 (9.0-12.0) Seconds INR 1.0 (0.9-1.1) APTT 28.5 (21.0-31.0) Seconds PTT Ratio 1.0 Sodium 138 (136-145) mmol/L Potassium 3.2 L (3.5-5.1) mmol/L Chloride 105 (98-107) mmol/L Carbon Dioxide 28 (21-32) mmol/L Anion Gap 4.0 (3-11) BUN 18 (7-18) mg/dl Creatinine 1.10 (0.6-1.4) mg/dl Est Cr Clr Drug Dosing 78.4 ml/min Est GFR ( Amer) 79.0 Est GFR (Non-Af Amer) 68.1 BUN/Creatinine Ratio 16.7 (10-20) Glucose 167 H (70-99) mg/dl POC Glucose (70-99) mg/dl Calcium 9.8 (8.5-10.1) mg/dl Magnesium 2.2 (1.8-2.4) mg/dl Total Bilirubin 0.5 (0.2-1) mg/dl AST 29 (15-37) U/L ALT 68 (12-78) U/L Alkaline Phosphatase 68 (45-117) U/L Troponin I < 0.015 (0-0.045) ng/ml Total Protein 7.1 (6.4-8.2) gm/dl Albumin 4.0 (3.4-5.0) gm/dl Globulin 3.1 (2.5-4.0) gm/dl Albumin/Globulin Ratio 1.3 (0.9-2) 09/02/19 Range/Units 21:26 WBC (4.8-10.8) K/uL RBC (4.7-6.1) M/uL Hgb (14.0-18.0) g/dL Hct (42-52) % MCV (80-100) fL MCH (25-34) pg MCHC (32-36) g/dL RDW Std Deviation (36.4-46.3) fL RDW Coeff of Tenzin (11.5-14.5) % Plt Count (130-400) K/uL MPV (7.4-10.4) fL Immature Gran % (Auto) % Neut % (Auto) % Lymph % (Auto) % Hinds % (Auto) % Eos % (Auto) % Baso % (Auto) % Immature Gran # (Auto) (0.00-0.02) K/uL Neut # (Auto) (1.4-6.5) K/uL Lymph # (Auto) (1.2-3.4) K/uL Hinds # (Auto) (0.11-0.59) K/uL Eos # (Auto) (0-0.5) K/uL Baso # (Auto) (0-0.2) K/uL PT (9.0-12.0) Seconds INR (0.9-1.1) APTT (21.0-31.0) Seconds PTT Ratio Sodium (136-145) mmol/L Potassium (3.5-5.1) mmol/L Chloride (98-107) mmol/L Carbon Dioxide (21-32) mmol/L Anion Gap (3-11) BUN (7-18) mg/dl Creatinine (0.6-1.4) mg/dl Est Cr Clr Drug Dosing ml/min Est GFR ( Amer) Est GFR (Non-Af Amer) BUN/Creatinine Ratio (10-20) Glucose (70-99) mg/dl POC Glucose 149 H (70-99) mg/dl Calcium (8.5-10.1) mg/dl Magnesium (1.8-2.4) mg/dl Total Bilirubin (0.2-1) mg/dl AST (15-37) U/L ALT (12-78) U/L Alkaline Phosphatase (45-117) U/L Troponin I (0-0.045) ng/ml Total Protein (6.4-8.2) gm/dl Albumin (3.4-5.0) gm/dl Globulin (2.5-4.0) gm/dl Albumin/Globulin Ratio (0.9-2) Imaging Data Radiologist's Impression: CT SCAN OF THE BRAIN WITHOUT IV CONTRAST CLINICAL HISTORY: Strokelike symptoms. COMPARISON STUDY: MRI of the brain dated 10/08/2012. TECHNIQUE: Unenhanced axial CT scan of the brain is performed from the vertex to the skull base. A dose lowering technique was utilized adhering to the principles of ALARA. CT DOSE: 614.27 mGy.cm FINDINGS: Brain parenchyma: The brain parenchyma is normal in appearance. There is no hemorrhage, mass effect, or evidence of acute territorial ischemia by CT criteria. Valera-white matter differentiation is preserved. No extra-axial fluid collection is seen. Ventricles, sulci, cisterns: Normal in configuration. Intracranial vasculature: There is atherosclerotic calcification of the cavernous carotid arteries. Calvarium: Unremarkable. Sinuses and mastoids: The visualized paranasal sinuses are clear. There is a small left mastoid effusion. The right mastoid air cells are well pneumatized. Orbits: The bony orbits are grossly intact. IMPRESSION: There is no hemorrhage, mass effect, or evidence of acute territorial ischemia by CT criteria. ACT 112: Negative or not required by law. Electronically signed by: Marcello Juarez M.D. 09/02/2019 9:48 PM Dictated: 09/02/192145 Transcribed: 09/02/192145 ECG Data Attestation: I personally reviewed and interpreted this ECG as follows: Indication: + other (CVA sx) Rate (beats per minute): 57 Rhythm: + sinus bradycardia ECG Intervals/blocks: + Normal QRS ECG [place]: + Left axis deviation ECG ST segments: no Nonspecific ST abnormalities ECG Findings: + PACs; no PVCs Blood Pressure Blood Pressure Findings: Elevated blood pressure Blood Pressure Disposition: further management by hospitalist EDGARDO Gomez An order for cardiac monitoring was placed and the patient is found to be in a sinus bradycardia at 55 bpm. This patient was evaluated and appeared to be in no significant distress. IV access was obtained and laboratory work was drawn. Patient's neurologic exam was intact. CT imaging of the head was performed and is negative for acute intracranial abnormality. EKG was performed and reveals no evidence of acute abnormality. Laboratory work reveals a mild hypokalemia but is otherwise reassuring. Given the patient's history of diabetes, hypertension, hyperlipidemia, he will be evaluated by the hospitalist service for further stroke evaluation. Patient is agreeable with the plan. Dr. Alford was consulted for further management. Impression & Plan Symptoms of cerebrovascular accident Discharge Plan Visit Data Chief Complaint: Stroke/CVA Symptoms Stated Complaint: LEFT SIDE TINGLING IN FACE, EYE PROBLEM ED Provider: Katie Nunez Discharge Problem: Symptoms of cerebrovascular accident Discharge Instructions Interventions: ED Discharge Assessment Last Done: 09/02/19 23:26
[2019-09-02] MEDS ORDERED: DEXTROSE 50% 50 ML SYRINGE IV PRN (23:55)
[2019-09-02] MEDS ORDERED: ACETAMINOPHEN 325 MG TAB PO PRN (23:55)
[2019-09-02] MEDS ORDERED: CARBOHYDRATES FOR HYPOGLYCEMIA PO PRN (23:55)
[2019-09-02] MEDS ORDERED: GLUCAGON FOR INJ 1 MG VIAL SQ PRN (23:55)
[2019-09-02] MEDS ORDERED: GLUCOSE 40% GEL 15 GM TUBE PO PRN (23:55)
[2019-09-02] MEDS ORDERED: GLUCOSE 10 TABS/TUBE PO PRN (23:55)
[2019-09-03] MEDS ORDERED: GADOBUTROL 65ML VIAL IV PRN (00:43)
[2019-09-03] MEDS ORDERED: OPTIRAY 320 125ml IV PRN (00:43)
--- NOTE | 2019-09-03 01:25 | History & Physical Report ---
Date of Service September 03, 2019 Assessment & Plan (1) Visual disturbance: Transient visual disturbance now resolved. Patient neurologically intact without deficit. ?TIA/CVA. Risk factors include HTN, HLP and DM. Possible retinal disease/detachment as patient describes floaters, flashing lights and blurry vision? These symptoms, however, have resolved completely -Observation to medical floor with telemetry -Neuro checks -Check MRI brain, CTA head and neck -Check 2D echo -Check A1C and Lipids, Check ESR -Initiate ASA 81mg po daily and Atorvastatin 40mg po daily for now -Neurology consultation appreciated -Consider Ophtho consultation pending results above Present on Admission?: Yes (2) HTN (hypertension): Blood pressure mildly elevated at 156/71 -Hold Olmesartan/HCTZ for now to allow for permissive HTN -Continue to monitor Present on Admission?: Yes (3) Hyperlipidemia: Chronic. Stable. Patient currently not on any medications -Check fasting lipid panel in AM -Atorvastatin 40mg po daily Present on Admission?: Yes (4) DM type 2 (diabetes mellitus, type 2): Chronic. Fairly well controlled. Last HgbA1C on 02/10/19 = 7.1. Blood ashnx=342 -Hold Metformin -ISS Present on Admission?: Yes (5) Gout, joint: Chronic. Stable -Continue Allopurinol 300mg po daily F/E/N - Heplock. Monitor electrolytes and replete as needed, patient given KCl in ER, will repeat labs in AM, Heart healthy/CC diet as tolerated with aspiration precautions Ppx - SCDs Code - FULL Dispo - Observation to medical floor with telemetry Present on Admission?: Yes Admission and Anticipated Discharge Date Admission Date: September 02, 2019 Anticipated date of discharge: 09/03/19 History of Present Illness Chief Complaint: Visual disturbance Primary Care Provider: Jerman Soriano MD [place] Riley is a pleasant 69yo C male with history of DM, HTN, HLP presenting wi th transient visual disturbance and facial numbness. Patient reports feeling some numbness and tingling in the left side of his face yesterday in the V3 distribution. The sensation persisted throughout the day and became slightly more noticeable as he was shaving this morning. 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 He thinks he experienced the visual change in both eyes, lasted only a few moments. Afterwards he looked up at the clock and reports that his vision was blurry in both eyes. This lasted appx 30 minutes then resolved to normal. Patient complaining now of a dull discomfort behind his left eye. He denies numbness/tingling/weakness. Denies slurred speech or facial droop. Denies pain with eye movement or current visual disturbance. Denies jaw claudication. He has occasional floaters in left eye ER Course: ASA 81mg Allergies Allergy/AdvReac Type Severity Reaction Status Date / Time dextromethorphan Allergy Hives Verified 07/23/19 15:20 guaifenesin Allergy Hives Verified 07/23/19 15:20 pseudoephedrine AdvReac Severe Rash Verified 07/23/19 15:20 [From [facility]] Home Medications Home Medications Medication Instructions Recorded Confirmed Type blood sugar diagnostic #10 ea 01/19/19 07/23/19 History lancets 30 gauge #25 ea 01/19/19 06/12/19 History metformin 500 mg tablet 1,000 mg PO BID #2 tab 01/19/19 09/02/19 History olmesartan 20 1 tab PO DAILY #90 tab 07/23/19 09/02/19 Rx mg-hydrochlorothiazide 12.5 mg tablet allopurinol 300 mg tablet 300 mg PO DAILY #90 tab 08/31/19 09/02/19 Rx Past Med/Surg History Medical History Benign paroxysmal positional vertigo of left ear (Chronic) Cigar smoker (Chronic) DM type 2 (diabetes mellitus, type 2) Dysfunction of left eustachian tube (Chronic) Episodic tobacco dependence (Chronic) Erectile dysfunction (Chronic) Gout, joint (Chronic) Hearing difficulty of left ear CURRENT ISSUE -HAS FLUID IN EAR HTN (hypertension) Hyperlipidemia 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) Obesity Obesity (Chronic) Premature atrial contraction (Chronic) Primary testicular hypogonadism (Chronic) Sleep apnea Surgical History History of colonoscopy S/P tube myringotomy Family History Father Stroke Lung cancer Hypertension Other specified forms of hearing loss Mother Cancer Sister Hypertension Denies family history of Myocardial infarction Social History Preferred Language: Cameroonian Communication Ability: Effective 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 Beliefs That Will Affect Care: None marital status: Current Living Situation: Spouse current occupational status: employed Feels Safe at Home: Yes Smoking Status: Former smoker Tobacco Type: cigars ; Cigarettes Per Day: only during golf season ; Smoking End Date: 01/29 ; Second Hand Exposure: No ; Hx Alcohol Use: No Hx Substance Use: No Review of Systems Review of Systems: All systems reviewed & are unremarkable except as noted in HPI & below Physical Exam Physical Exam: General: patient resting comfortably, NAD, non-toxic in appearance, AA&O x 4 Skin: warm, dry, intact, no rashes or lesions HEENT: NC/AT, PERRL, EOMI, anicteric sclera, conjunctiva without injection, external ear normal to inspection and nontender, nares patent, moist mucus membranes, dentition intact, no oropharyngeal lesions, neck supple, trachea midline, no LAD, no thyromegaly, no JVD, no temporal artery tenderness Heart: +S1/S2, regular, bradycardic with ectopy, no m/r/g Lungs: equal air entry bilaterally, no rales/rhonchi/wheezes Abd: +BS, soft, NT/ND, no masses/organomegaly/ascites Ext: warm, 2+ pulses in UE/LE bilaterally, no clubbing/cyanosis or edema Neuro: nonfocal, patient AA&O x 4, speech intact, no facial droop, CN II - XII grossly intact, decreased hearing in left ear, sensation to light touch intact, MS 5/5 bilaterally Results & Data Results & Data ([facility]) Vital Signs (Past 12 Hours) Vital Signs Temp Pulse Pulse Resp BP BP Pulse Ox 09/02/19 23:45 36.4 C L 48 L 16 156/71 H 97 09/02/19 23:19 58 L 18 144/68 H 96 09/02/19 23:00 57 L 18 135/87 95 09/02/19 22:12 55 L 18 122/66 94 09/02/19 21:08 97 09/02/19 20:45 36.4 C L 71 18 169/105 H 96 Laboratory Results Lab Results 09/02/19 09/02/19 09/02/19 Range/Units 21:05 21:05 21:05 WBC 5.65 (4.8-10.8) K/uL RBC 5.29 (4.7-6.1) M/uL Hgb 15.2 (14.0-18.0) g/dL Hct 43.8 (42-52) % MCV 82.8 (80-100) fL MCH 28.7 (25-34) pg MCHC 34.7 (32-36) g/dL RDW Std Deviation 42.1 (36.4-46.3) fL RDW Coeff of Tenzin 14.2 (11.5-14.5) % Plt Count 220 (130-400) K/uL MPV 10.0 (7.4-10.4) fL Immature Gran % (Auto) 0.2 % Neut % (Auto) 48.3 % Lymph % (Auto) 38.6 % Banner % (Auto) 10.4 % Eos % (Auto) 2.1 % Baso % (Auto) 0.4 % Immature Gran # (Auto) 0.01 (0.00-0.02) K/uL Neut # (Auto) 2.73 (1.4-6.5) K/uL Lymph # (Auto) 2.18 (1.2-3.4) K/uL Banner # (Auto) 0.59 (0.11-0.59) K/uL Eos # (Auto) 0.12 (0-0.5) K/uL Baso # (Auto) 0.02 (0-0.2) K/uL ESR (0-14) mm/hr PT 10.5 (9.0-12.0) Seconds INR 1.0 (0.9-1.1) APTT 28.5 (21.0-31.0) Seconds PTT Ratio 1.0 Sodium 138 (136-145) mmol/L Potassium 3.2 L (3.5-5.1) mmol/L Chloride 105 (98-107) mmol/L Carbon Dioxide 28 (21-32) mmol/L Anion Gap 4.0 (3-11) BUN 18 (7-18) mg/dl Creatinine 1.10 (0.6-1.4) mg/dl Est Cr Clr Drug Dosing 78.4 ml/min Est GFR ( Amer) 79.0 Est GFR (Non-Af Amer) 68.1 BUN/Creatinine Ratio 16.7 (10-20) Glucose 167 H (70-99) mg/dl POC Glucose (70-99) mg/dl Calcium 9.8 (8.5-10.1) mg/dl Magnesium 2.2 (1.8-2.4) mg/dl Total Bilirubin 0.5 (0.2-1) mg/dl AST 29 (15-37) U/L ALT 68 (12-78) U/L Alkaline Phosphatase 68 (45-117) U/L Troponin I < 0.015 (0-0.045) ng/ml Total Protein 7.1 (6.4-8.2) gm/dl Albumin 4.0 (3.4-5.0) gm/dl Globulin 3.1 (2.5-4.0) gm/dl Albumin/Globulin Ratio 1.3 (0.9-2) 09/02/19 09/02/19 Range/Units 21:12 21:26 WBC (4.8-10.8) K/uL RBC (4.7-6.1) M/uL Hgb (14.0-18.0) g/dL Hct (42-52) % MCV (80-100) fL MCH (25-34) pg MCHC (32-36) g/dL RDW Std Deviation (36.4-46.3) fL RDW Coeff of Tenzin (11.5-14.5) % Plt Count (130-400) K/uL MPV (7.4-10.4) fL Immature Gran % (Auto) % Neut % (Auto) % Lymph % (Auto) % Banner % (Auto) % Eos % (Auto) % Baso % (Auto) % Immature Gran # (Auto) (0.00-0.02) K/uL Neut # (Auto) (1.4-6.5) K/uL Lymph # (Auto) (1.2-3.4) K/uL Banner # (Auto) (0.11-0.59) K/uL Eos # (Auto) (0-0.5) K/uL Baso # (Auto) (0-0.2) K/uL ESR 7 (0-14) mm/hr PT (9.0-12.0) Seconds INR (0.9-1.1) APTT (21.0-31.0) Seconds PTT Ratio Sodium (136-145) mmol/L Potassium (3.5-5.1) mmol/L Chloride (98-107) mmol/L Carbon Dioxide (21-32) mmol/L Anion Gap (3-11) BUN (7-18) mg/dl Creatinine (0.6-1.4) mg/dl Est Cr Clr Drug Dosing ml/min Est GFR ( Amer) Est GFR (Non-Af Amer) BUN/Creatinine Ratio (10-20) Glucose (70-99) mg/dl POC Glucose 149 H (70-99) mg/dl Calcium (8.5-10.1) mg/dl Magnesium (1.8-2.4) mg/dl Total Bilirubin (0.2-1) mg/dl AST (15-37) U/L ALT (12-78) U/L Alkaline Phosphatase (45-117) U/L Troponin I (0-0.045) ng/ml Total Protein (6.4-8.2) gm/dl Albumin (3.4-5.0) gm/dl Globulin (2.5-4.0) gm/dl Albumin/Globulin Ratio (0.9-2) Diagnostic Findings CT SCAN OF THE BRAIN WITHOUT IV CONTRAST CLINICAL HISTORY: Strokelike symptoms. COMPARISON STUDY: MRI of the brain dated 10/08/2012. TECHNIQUE: Unenhanced axial CT scan of the brain is performed from the vertex to the skull base. A dose lowering technique was utilized adhering to the principles of ALARA. CT DOSE: 614.27 mGy.cm FINDINGS: Brain parenchyma: The brain parenchyma is normal in appearance. There is no hemorrhage, mass effect, or evidence of acute territorial ischemia by CT criteria. Valera-white matter differentiation is preserved. No extra-axial fluid collection is seen. Ventricles, sulci, cisterns: Normal in configuration. Intracranial vasculature: There is atherosclerotic calcification of the cavernous carotid arteries. Calvarium: Unremarkable. Sinuses and mastoids: The visualized paranasal sinuses are clear. There is a small left mastoid effusion. The right mastoid air cells are well pneumatized. Orbits: The bony orbits are grossly intact. IMPRESSION: There is no hemorrhage, mass effect, or evidence of acute territorial ischemia by CT criteria. ACT 112: Negative or not required by law. Electronically signed by: Marcello Juarez M.D. 09/02/2019 9:48 PM Dictated: 09/02/19 2146 CTA Head - Per STAT-rad: Normal CTA of the Head. Normal venous sinuses. CTA Neck - Per STAT-rad: Normal CTA of the neck. Incidental subcentimeter left thyroid midpole nodule. Bilateral apical lung parencymal pleural scarring. Mild cervical spine degenerative changes. ECG Additional Comments: Sinus bradycardia with PACs, 57bpm, normal axis, no acute ischemic changes Code Status & VTE Plan Code Status FULL VTE Prophylaxis Plan VTE Prophylaxis will be ordered: Yes PG Care Time/CCT Total # of Minutes Spent Total Time Spent with Patient: Total time spent is greater than 50% in coordination of care (as documented) at patient's floor/unit and/or counseling patient: Coding Level of Care Code 67916 OBS Care - Level 3 Diagnoses Visual disturbance H53.9 HTN (hypertension) I10 Hypertension type: essential hypertension Hyperlipidemia E78.5 Hyperlipidemia type: unspecified DM type 2 (diabetes mellitus, type 2) E11.9 Diabetes mellitus detention insulin use: without detention use Diabetes mellitus complication status: without complication Gout, joint M10.9 (1) DM type 2 (diabetes mellitus, type 2) Diabetes mellitus detention insulin use: without termite helper use Diabetes mellitus complication status: without complication Qualified Code(s): E11.9 - Type 2 diabetes mellitus without complications (2) HTN (hypertension) Hypertension type: essential hypertension Qualified Code(s): I10 - Essential (primary) hypertension (3) Hyperlipidemia Hyperlipidemia type: unspecified Qualified Code(s): E78.5 - Hyperlipidemia, unspecified
--- NOTE | 2019-09-03 06:24 | CT Scan Report ---
CT angio neck with con HISTORY: Mental status change ?CVA TECHNIQUE: Multiaxial CT angiography of the neck was performed IV contrast: 100 cc nonionic All robbie urements were calculated based on NASCET criteria. Maximum intensity projection images were also obt ained. A dose lowering technique was utilized adhering to the principles of ALARA. COMPARISON STUDY: None. FINDINGS: The aortic arch and proximal great vessels are widely patent. There is no significant sten osis, occlusion, or dissection identified within the bilateral common carotid, internal carotid, or v ertebral arteries. IMPRESSION: No significant stenosis, occlusion, or dissection identified within the carotid or vertebral arteries . ACT 112: Negative or not required by law. The above report was generated using voice recognition software. It may contain grammatical, syntax or spelling errors. Electronically signed by: Frantz Vargas M.D. 09/03/2019 6:22 AM
--- NOTE | 2019-09-03 06:25 | CT Scan Report ---
CT angio head w con HISTORY: Mental status change ?CVA TECHNIQUE: Multiaxial CT angiography of the head was performed IV contrast: 100 cc nonionic Maximu m intensity projection images were also obtained. A dose lowering technique was utilized adhering to the principles of ALARA. COMPARISON: None. FINDINGS: There is no mass, hematoma, midline shift, or acute infarct. Visualized intracranial chemistry intern al carotid arteries, distal vertebral arteries, and basilar artery are widely patent. 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 IMPRESSION: No significant stenosis, occlusion, or aneurysm within the augustine of Peng. ACT 112: Negative or not required by law. The above report was generated using voice recognition software. It may contain grammatical, syntax or spelling errors. Electronically signed by: Frantz Vargas M.D. 09/03/2019 6:23 AM
[2019-09-03 06:39] LABS: Estimated Average Glucose 163 mg/dl; Hemoglobin A1C 7.3 % (4.5-5.6)
--- NOTE | 2019-09-03 06:39 | Magnetic Resonance Report ---
MR brain wo/w con CLINICAL HISTORY: ?TIA/CVA mental status change COMPARISON STUDY: No previous studies for comparison. TECHNIQUE: Utilizing a 1.5 Margarita magnet and dedicated coil, multiplanar, multiecho imaging of the br ain was performed pre and postcontrast administration. IV administration of 10 mL of [address] contra st was uneventful. FINDINGS: Diffusion images show no evidence for an acute ischemic process. Signal characteristics of the cerebellar as well as cerebral hemispheres are unremarkable. The ventricular system is midline. There are findings of mild age-related chronic small vessel change . Sella and parasellar regions are unremarkable. IMPRESSION: No acute process. Age-related chronic small vessel change. ACT 112: Negative or not required by law. The above report was generated using voice recognition software. It may contain grammatical, syntax or spelling errors. Electronically signed by: Frantz Vargas M.D. 09/03/2019 6:37 AM
[2019-09-03 07:13] LABS: BUN Creatinine Ratio 15.6 (10-20); Calcium 9.3 mg/dl (8.5-10.1); Creatinine Clr Calc Pharmacy 84.2 ml/min; Est GFR (African American) 86.5; Est GFR (Non-African American) 74.6
[2019-09-03] MEDS: INSULIN ASPART 100 UNITS/ML 3 ML PEN SC SCH ×3 (08:58→17:35)
[2019-09-03] MEDS ORDERED: ATORVASTATIN 40 MG TAB PO SCH (09:00)
[2019-09-03] MEDS ORDERED: ASPIRIN 81 MG ECTAB PO SCH (09:00)
[2019-09-03] MEDS ORDERED: allopurinoL 300 MG TAB PO SCH (09:00)
--- NOTE | 2019-09-03 14:23 | Electrocardiogram Report ---
Test Reason : Blood Pressure : / mmHG Vent. Rate : 057 BPM Atrial Rate : 057 BPM P-R Int : 166 ms QRS Dur : 100 ms QT Int : 404 ms P-R-T Axes : 059 018 050 degrees QTc Int : 393 ms Sinus bradycardia with Premature atrial complexes Nonspecific ST abnormality Abnormal ECG When compared with ECG of 22-JUL-2018 06:42, No significant change was found Confirmed by Elan Muñiz ([id number]) on 09/03/2019 2:23:37 PM Referred By: REFERRED SELF Confirmed By:Julio Muñiz
--- NOTE | 2019-09-03 18:09 | Neurology Consultation ---
Date of Consultation September 03, 2019 Assessment & Plan (1) Visual disturbance: [place] Riley is a 69 yo man w/ PMH of HTN, HLD, DM, tobacco abuse, obesity, TOBIAS, vitamin D deficiency and left eustachian tube dysfunction who p/t [facility] after acute onset of vision changes and left V3 tingling. # Vision disturbance: does not fit with amaurosis fugax as he had positive visual symptoms of flashing lights. Ddx includes migraine aura vs occipital seizure vs primary eye pathology anterior to the optic chiasm (most likely the latter). No h/o migraine and no lesion to explain seizure. - follow up with outpatient ophtho as soon as possible to r/o recurrence of retinal detachment OS or other eye pathology # Left jaw tingling: could localize to left V3 vs brainstem vs right thalamus (though has no symptoms in his LUE). No stroke noted on MRI brain, nor tumor/mass lesion compressing on the L trigeminal nerve to explain symptoms. Could also be early Hecker palsy vs shingles. Discussed with North what symptoms to look out for over the next few days for either of these possibilities. If small stroke that was not noted on MRI, would anticipate symptoms to improve over the next few weeks. - start aspirin 81mg daily and re-start atorvastatin 40mg daily - send for Lyme screen; if positive, doxycycline course as this can be a/w Hecker palsy - advised him to call PCP if he should have shingles symptoms to get appropriate home treatment (valtrex/steroids prn) Thank you for this interesting consult. Plan of care discussed with primary team. Please call or text with questions. (2) Numbness and tingling of left side of face: (3) Symptoms of cerebrovascular accident: History of Present Illness Attending Physician: Berna Wells MD History of Present Illness [place] Riley is a 69 yo man w/ PMH of HTN, HLD, DM, tobacco abuse, obesity, TOBIAS, vitamin D deficiency and left eustachian tube dysfunction who p/t [facility] after acute onset of vision changes and left V3 tingling. 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 Reports that he was at work when he thought he saw a reflection of a coin on the machine where he was working at. He reports that the flash of light would come and go over the course of the morning; did not notice if it was in both eyes or just one (did not cover one eye to test). In the afternoon, he reports that he started to have tingling in his left jaw. 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 Given everything that had happened that day, he presented to the ED. In the ED, he was afebrile, BP 169/105, HR 71, satting 96% on room air. Labs notable for WBC 5.65, Hb 15.2, Plts 220, Na 138, K 3.2, Cr 1.1, glucose 167, tr oponin negative, INR 1.0, LFTs WNL. CTH showed no hemorrhage or hypodensity. CTA head and neck showed no LVO, high grade stenosis or aneurysm. MRI brain showed mild SVID, no tumor or stroke. He was given aspirin and admitted for further workup. On evaluation today, he reports that all vision symptoms have resolved, he no longer has pressure behind his eye, but he does still have tingling on the left jaw. He did not have any qualitative sensory findings (diminished vibration, temperature or LT) on examination. He denies having a h/o headaches or migraines in the past. He did see his ophtho in July 2019 and has a h/o retinal detachment OS, however, he could not remember what symptoms occurred at that time and whether or not that was similar to current symptoms. Denied any numbness, tingling or weakness in any extremities, facial droop, or hearing changes. Allergies Allergy/AdvReac Type Severity Reaction Status Date / Time dextromethorphan Allergy Hives Verified 07/23/19 15:20 guaifenesin Allergy Hives Verified 07/23/19 15:20 pseudoephedrine AdvReac Severe Rash Verified 07/23/19 15:20 [From [facility]] Home Medications Home Medications Medication Instructions Recorded Confirmed Type blood sugar diagnostic #10 ea 01/19/19 07/23/19 History lancets 30 gauge #25 ea 01/19/19 06/12/19 History olmesartan 20 1 tab PO DAILY #90 tab 07/23/19 09/02/19 Rx mg-hydrochlorothiazide 12.5 mg tablet allopurinol 300 mg tablet 300 mg PO DAILY #90 tab 08/31/19 09/02/19 Rx aspirin 81 mg PO QAM #30 tab 09/03/19 Rx atorvastatin 40 mg PO QAM #30 tab 09/03/19 Rx metformin 1,000 mg PO BID #2 tab 09/03/19 09/02/19 Rx Patient History Medical History Benign paroxysmal positional vertigo of left ear (Chronic) Cigar smoker (Chronic) DM type 2 (diabetes mellitus, type 2) Dysfunction of left eustachian tube (Chronic) Episodic tobacco dependence (Chronic) Erectile dysfunction (Chronic) Gout, joint (Chronic) Hearing difficulty of left ear CURRENT ISSUE -HAS FLUID IN EAR HTN (hypertension) Hyperlipidemia 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) Obesity Obesity (Chronic) Premature atrial contraction (Chronic) Primary testicular hypogonadism (Chronic) Sleep apnea Surgical History History of colonoscopy S/P tube myringotomy Family History Father Stroke Lung cancer Hypertension Other specified forms of hearing loss Mother Cancer Sister Hypertension Denies family history of Myocardial infarction Social History Preferred Language: Tajik Communication Ability: Effective 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 Exam (Neuro) Physical Exam: General Exam: GEN: NAD, sitting down in examination bed. HEENT: No conjunctival injection, no rhinorrhea. CV: RRR on monitor, no significant edema. PULM: Nonlabored respirations on room air. INTEG: No rashes. Neuro Exam: MS: Awake and Alert. Oriented to person, place, and date. Speech fluent and appropriate without dysarthria or paraphasic errors. Language intact including naming, comprehension, repetition. Cognition and memory grossly intact. Attention intact. No neglect. CN: Visual burns full, + blink to threat bilaterally. No extinction to double simultaneous stimuli. Unable to visualize fundi on fundoscopic exam. PERRLA OU. EOMI without nystagmus. Facial sensation intact to LT. Facial muscles full and symmetric (subtle nasolabial fold flattening on the left, pt reports that is his baseline). Hearing intact to conversation bilaterally. Uvula midline with symmetric palatal elevation. Shoulder shrug normal. Tongue midline. MOTOR: Normal bulk and tone. No pronator drift. BUE strength 5/5 at deltoids, biceps, triceps, wrist flexors and extensors, and finger flexors bilaterally. BLE strength 5/5 at iliopsoas, hamstrings, quadriceps, tibialis anterior, and gastrocnemius bilaterally. REFLEXES: 2+ at biceps, triceps, brachioradialis, 1+ patella, and trace Achilles bilaterally. Flexor plantar responses bilaterally. SENSORY: Intact to LT/vibration/temperature throughout, no extinction to double simultaneous stimuli. COORDINATION: No dysmetria or ataxia on [id number] bilaterally. Normal Zaynab bilaterally. GAIT: Deferred due to physical status. NIH STROKE SCALE 1A. Level of Consciousness (0-3) = 0 1B. LOC Questions (0-2) = 0 1C. LOC Commands (0-2) = 0 2. Best Horizontal Gaze (0-2) = 0 3. Visual Burns (0-3) = 0 4. Facial Palsy (0-3) = 1 5. Motor Arm Right (0-4) = 0 Left (0-4) = 0 6. Motor Leg Right (0-4) = 0 Left (0-4) = 0 7. Limb Ataxia (0-2) = 0 8. Sensory (0-2) = 0 9. Best Language (0-3) = 0 10. Dysarthria (0-2) = 0 11. Extinction and Inattention (0-2) = 0 NIHSS TOTAL = 1 Results & Data ([facility]) Vital Signs (Past 12 Hours) Vital Signs Temp Pulse Pulse Resp BP Pulse Ox 09/03/19 15:58 67 09/03/19 15:31 36.6 C 65 18 148/87 H 95 09/03/19 07:22 36.4 C L 82 19 135/74 95 09/03/19 06:10 57 L PG Care Time/CCT Total # of Minutes Spent Total Time Spent with Patient: Total time spent is greater than 50% in coordination of care (as documented) at patient's floor/unit and/or counseling patient: Coding Level of Care Code 11208 Initial Inpt Care Lvl 3 Diagnoses Visual disturbance H53.9 Numbness and tingling of left side of face R20.0; R20.2 Symptoms of cerebrovascular accident R29.90
--- NOTE | 2019-09-03 18:17 | Discharge Summary ---
Date of Service September 03, 2019 Admission HPI Per Admitting Provider [place] is a pleasant 69yo C male with history of DM, HTN, HLP presenting with transient visual disturbance and facial numbness. Patient reports feeling some numbness and tingling in the left side of his face yesterday in the V3 distribution. The sensation persisted throughout the day and became slightly more noticeable as he was shaving this morning. 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 He thinks he experienced the visual change in both eyes, lasted only a few moments. Afterwards he looked up at the clock and reports that his vision was blurry in both eyes. This lasted appx 30 minutes then resolved to normal. Patient complaining now of a dull discomfort behind his left eye. He denies numbness/tingling/weakness. Denies slurred speech or facial droop. Denies pain with eye movement or current visual disturbance. Denies jaw claudication. He has occasional floaters in left eye ER Course: ASA 81mg Principal Diagnosis Facial paresthesias Visual disturbance Discharge Exam Constitutional WD/WN, vitals as above Eyes PERRL, conjunctivae normal, anicteric sclerae ENMT external ear and nose normal, oropharynx normal Neck trachea midline, no thyromegaly Respiratory normal respiratory effort, lungs clear to auscultation Cardiovascular RRR, no murmur, no edema Chest (Breasts) Chest: normal inspection of chest Gastrointestinal (Abdomen) normal bowel sounds, soft, nontender, no hepatosplenomegaly Musculoskeletal Extremities: extremities normal to inspection; no cyanosis and no clubbing Skin no rashes, warm and dry Neurologic PERRL, EOMI, accommodation nl, no face palsy, no dysarthria CN's II-XI intact bilaterally, deep tendon reflexes 2+ bilaterally, moves all extremities and awake; no focal motor deficits Speech / Cognition: normal speech and no expressive aphasia Motor/Sensory: no tremor, normal movement and no sensory deficit Psychiatric A+Ox3, euthymic affect Lymphatic no lymphedema Discharge Data Allergies Allergy/AdvReac Type Severity Reaction Status Date / Time dextromethorphan Allergy Hives Verified 07/23/19 15:20 guaifenesin Allergy Hives Verified 07/23/19 15:20 pseudoephedrine AdvReac Severe Rash Verified 07/23/19 15:20 [From Sudafed] Consultations 09/02/19 22:24 ED Decision to Admit Stat 09/02/19 23:55 Consult Neurology Routine Ordered Studies 09/02/19 21:12 CT head/brain wo con Stat 09/02/19 23:55 CT angio head w con Routine CT angio neck with con Routine 09/03/19 23:55 MR brain wo/w con Routine Hospital Course (1) Visual disturbance: Transient visual disturbance resolved after about 30 min the day of admission. Was followed by a sensation of pressure behind the left eye and associated with left sided facial paresthesias/numbness Continued with facial paresthesias, but headache and visual symptoms completely resolved MRI Brain neg for stroke CTA head and neck negative -ECHO negative but PFO could not adequately be assessed -ESR normal -Initiated ASA 81mg po daily and Atorvastatin 40mg po daily in case of TIA/small CVA not seen on MRI -Neurology consultation appreciated-thinks primary ophthalmologic issue vs early shingles or early Hussein's Palsy vs ocular visual aura or occipital seizure -needs Ophtho eval ANNETTE after discharge-discussed with patient -if develops shingles or worsening symptoms, advised to contact PCP (2) Numbness and tingling of left side of face: as above (3) HTN (hypertension): -continue Olmesartan/HCTZ (4) Hyperlipidemia: -started Atorvastatin 40mg po daily (5) DM type 2 (diabetes mellitus, type 2): Chronic. Fairly well controlled. Last HgbA1C on 02/10/19 = 7.1. Blood vetlu=735 -continue Metformin (6) Gout, joint: Chronic. Stable -Continue Allopurinol 300mg po daily Dispo-stable for dc to home Total Time Total Time Spent Total Time Spent (In Minutes): 45 min Total Time Includes: Examination of the Patient, Discharge Planning and Medication Reconciliation Discharge Plan Discharge Items Patient Disposition: Home - Self-Care Reason For Visit: VISUAL DISTURBANCE,FACIAL TINGLING Discharge Diagnosis: Left sided facial numbness/tingling, visual changes Condition on Discharge: Good Activity: Resume your previous activity Driving/Machine Use: No limitations Non-emergency contact: Primary Care Provider Call non-emergency contact if: you have any medication questions and your symptoms worsen Follow-up/Referrals: Jerman Soriano MD [Primary Care Provider] - (Please call Dr. Soriano for a follow-up appointment within the next week.) Diet: Carb Consistent or DM2 and Heart Healthy Addtl Attending Provider Instructions: You are admitted for left-sided facial numbness and tingling as well as visual changes. Your work-up for stroke was completely negative. It is possible that you could have had a very small stroke that is just not showing up on the brain MRI here. Because of that, and because you have a history of diabetes, we recommend that you start taking aspirin 81 mg once daily, along with atorvastatin 40 mg once daily. It is important to continue to have good control of your blood pressure and your diabetes. More likely, this could be an early presentation of either shingles, a Hussein's palsy, or possibly an atypical migraine. If you notice a rash on the left side of your face or a facial droop, please call your doctor right away. A Lyme disease test was drawn and was pending at the time of discharge-Dr. Soriano can follow-up on this result for you. If you have a recurrence or worsening of these or any other acute symptoms that are concerning, please call your doctor right away. Because of the contrast dye you received for your CT scan, it is recommended that you not take your metformin until the evening of 09/05/2019. 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 Follow-up with Dr. Soriano within 1 week. Pending Studies at Discharge: Yes (Lyme disease test) Stand-Alone Forms: My [facility] [employer], Smoking Cessation Medications and DC Order Prescriptions: New atorvastatin 40 mg Tablet 40 mg PO QAM Qty: 30 RF: 0 aspirin 81 mg Tablet,Delayed Release (Dr/Ec) 81 mg PO QAM Qty: 30 RF: 0 Continued allopurinol 300 mg tablet 300 mg PO DAILY Qty: 90 RF: 3 (DME) lancets [OneTouch Delica Lancets] 30 gauge misc See Dose Instructions .ROUTE .MEDSUPPLY Qty: 25 RF: 0 (DME) OneTouch Verio strip See Dose Instructions .ROUTE .MEDSUPPLY Qty: 10 RF: 0 olmesartan-hydrochlorothiazide 20-12.5 mg tablet 1 tab PO DAILY Qty: 90 RF: 3 Discontinued metformin 500 mg tablet 1,000 mg PO BID Qty: 2 RF: 0 No Action metformin 500 mg tablet 1,000 mg PO BID Qty: 360 RF: 1 Discharge Orders: Discharge Order (Routine); Ordered 09/03/19 Ordered By: Berna Smith/Other Patient Handouts: Hyperglycemia, Hypoglycemia, Stroke Sx Admission Data Admit Date/Time: 09/02/19 23:02 Attending Provider: Berna Wells Admit Provider: Melissa Alford Primary Care Provider: Jerman Soriano Other Providers: Melissa Alford ; Sonia Velez Other Interventions: Discharge Summary Assessment (RN) Last Done: 09/03/19 18:30 DC Date/Time DO NOT enter until pt leaves facility: 09/03/19 19:02 Coding Level of Care Code 15117 OBS Care - Discharge Diagnoses Visual disturbance H53.9 Numbness and tingling of left side of face R20.0; R20.2 HTN (hypertension) I10 Hypertension type: essential hypertension Hyperlipidemia E78.5 Hyperlipidemia type: unspecified DM type 2 (diabetes mellitus, type 2) E11.9 Diabetes mellitus complication status: without complication 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
[2019-09-03 18:57] LABS: Lyme Ab IgG w/WB Rflx Negative (Negative); Lyme Ab IgM w/WB Rflx Negative (Negative)
--- NOTE | 2019-09-04 11:28 | XCELERA ---
[id number] \\[email or web address]_[email or web address]\[id number]
== END 2019-09-03 19:02 | disposition home or self-care (01) ==
LOC: ED 20:41 → 2W 20:41 → SUATTDRO 23:02 → 2W 23:26

== ENCOUNTER 2020-03-28 19:23 | Observation (INO) ==
[2020-03-28 20:20] LABS: Basophils # (auto) 0.01 K/uL (0-0.2); Basophils % (auto) 0.2 %; Eosinophils # (auto) 0.14 K/uL (0-0.5); Eosinophils % (auto) 2.3 %; Hemoglobin 15.3 g/dL (14.0-18.0); Immature Granulocytes # (auto) 0.01 K/uL (0.00-0.02); Immature Granulocytes % (auto) 0.2 %; Lymphocytes # (auto) 2.29 K/uL (1.2-3.4); Lymphocytes % (auto) 37.7 %; Mean Corpuscular Hemoglobin 28.4 pg (25-34); Mean Corpuscular Hgb Conc 34.8 g/dL (32-36); Mean Corpuscular Volume 81.6 fL (80-100); Mean Platelet Volume 10.2 fL (7.4-10.4); Monocytes # (auto) 0.58 K/uL (0.11-0.59); Monocytes % (auto) 9.6 %; Neutrophils # (auto) 3.04 K/uL (1.4-6.5); Platelet Count 247 K/uL (130-400); RDW Standard Deviation 41.8 fL (36.4-46.3); Red Blood Count 5.39 M/uL (4.7-6.1); White Blood Count 6.07 K/uL (4.8-10.8)
[2020-03-28 20:44] LABS: Alanine Aminotransferase 42 U/L (12-78); Albumin Level 3.9 gm/dl (3.4-5.0); Aspartate Aminotransferase 18 U/L (15-37); BUN Creatinine Ratio 16.2 (10-20); Blood Urea Nitrogen 19 mg/dl (7-18); Calcium 9.9 mg/dl (8.5-10.1); Carbon Dioxide 25 mmol/L (21-32); Chloride 103 mmol/L (98-107); Creatinine Clr Calc Pharmacy 71.8 ml/min; Est GFR (African American) 72.8; Est GFR (Non-African American) 62.8; Glucose 177 mg/dl (70-99); Potassium 3.1 mmol/L (3.5-5.1); Sodium 137 mmol/L (136-145)
[2020-03-28 20:47] LABS: Albumin Globulin Ratio 1.2 (0.9-2); Alkaline Phosphatase 88 U/L (45-117); Bilirubin,Total 0.7 mg/dl (0.2-1); Globulin 3.4 gm/dl (2.5-4.0); Total Protein 7.3 gm/dl (6.4-8.2)
[2020-03-28] MEDS ORDERED: SODIUM CHLORIDE 0.9% 1000ML 1,000 ML IV ONE (20:50)
[2020-03-28] MEDS ORDERED: POTASSIUM CHLORIDE CRTAB 20 MEQ TABCR PO STA (20:51)
--- NOTE | 2020-03-28 20:59 | Emergency Department Note ---
Impression & Plan Acute electrocardiogram changes, Weakness, SOB (shortness of breath) ED Provider Note NAME: SERGEY MURRELL AGE: 70 SEX: M : 1950 ARRIVES VIA: Walk-In INFORMANT: [Patient] ED PROVIDER(S): [Marcello Lin MD] CHIEF COMPLAINT: Hyperglycemia, weakness HISTORY OF PRESENT ILLNESS: The patient is a 70-year-old male presents to the ED with a few days of weakness, some lightheadedness, some fatigue and some mild shortness of breath. There has been no chest pain. He feels dizzy and lightheaded when he stands too quick. The patient states his blood sugar has been in the 300s at times, he is concerned that the high sugars are making him feel so poorly. The patient did have a few bouts of diarrhea today, no nausea or vomiting. No fever. No abdominal pain, no urinary complaints, he has not noticed and increased urinary frequency. The patient states at work today he just did not feel right, he decided to come and have an evaluation. REVIEW OF SYSTEMS: See HPI for pertinent positives and negatives. A total of ten systems were rev iewed and were otherwise negative. PMHx/PSHx: See Below SOCIAL HISTORY: See Below. PHYSICAL EXAM: GENERAL: Patient is in no acute distress. HEENT: No acute trauma, normocephalic atraumatic, mucous membranes moist, no nasal congestion, no scleral icterus. NECK: No stridor, no adenopathy, no meningismus, trachea is midline. LUNGS: Clear to auscultation bilaterally, no wheeze, no rhonchi, breath sounds equal. HEART: There is an irregular rhythm with a normal rate, no murmurs. ABDOMEN: Soft, nontender, bowel sounds positive, no hernias, no peritonitis. EXTREMITIES: No cyanosis, mild bilateral pedal edema, full range of motion of all the joints without pain or difficulty, no signs for acute trauma. NEUROLOGIC: Oriented x 3, no acute motor or sensory deficits, no focal weakness. SKIN: No rash, no jaundice, no diaphoresis. DIFFERENTIAL DIAGNOSIS: Infection, dehydration, metabolic abnormality, hypo/hyperglycemia, electrolyte disturbance, anemia, hypoxia, cardiac sources, intracerebral event, toxicologic, neurologic, as well as other pathologies. EMERGENCY DEPARTMENT COURSE/PROCEDURES: ECG: Indication was weakness. The ECG shows a sinus rhythm with PACs. There is a bigeminy pattern. The rate is 71. QTC is 456. There is no ST elevation, the patient does have ST depression in the anterior and lateral leads. Compared to an ECG from 02 September 2019, the ST depression appears new. Continuous Cardiac Monitoring: An order was placed for continuous cardiac monitoring. The monitor shows a rate of 66 with sinus rhythm with PACs. Orthostatic vital signs are negative. MEDICAL DECISION MAKING: There is no leukocytosis or concerning anemia. There is a normal platelet count. Potassium slightly low at 3.1, no kidney failure. Glucose was elevated but reasonable at 177. There was no liver enzyme elevation. ECG shows a sinus rhythm with PACs. There was some ST depression in the anterior and lateral leads which appeared new. No ST elevation. Cardiac enzyme testing x1 is not consistent with acute cardiac injury. Urinalysis showed some glucose, no infection. Covid testing was negative. On exam, the patient was not febrile or toxic. Orthostatic vital signs were negative. The patient presents with weakness, fatigue and some shortness of breath. He does have some subtle ECG changes. He was initially concerned that maybe his blood sugar was too high however, I suspect his meter at home may be out of calibration. The patient is being hospitalized for further cardiac work-up. I spoke to him about his findings, the clinical case manager have been involved. The on-call hospitalist was consulted. Past Med/Surg History Medical History Benign paroxysmal positional vertigo of left ear HX Cigar smoker OCC DM type 2 (diabetes mellitus, type 2) Dysfunction of left eustachian tube HX Episodic tobacco dependence Erectile dysfunction Gout, joint HX Herniated disc LUMBAR/FOLLOWS CHIRO HTN (hypertension) Hyperlipidemia Mixed conductive and sensorineural hearing loss of left ear with restricted hearing of right ear Obesity Premature atrial contraction PT DENIES HX IRREGULAR HEART BEAT Snores NO SLEEP STUDY Surgical History History of colonoscopy S/P tube myringotomy HX LEFT EAR TUBE PLACEMENT AND SINCE REMOVED Family History Father Other specified forms of hearing loss Lung cancer Hypertension Stroke Mother Cancer Sister Hypertension Other Family history of diabetes mellitus in father Denies family history of Myocardial infarction Social History Smoking Status: Current some day smoker Tobacco Type: Cigars Cigarettes Per Day: CIGARS - 2 A WEEK AVERAGE / ADVISED NPO; Second Hand Exposure: No; Hx Alcohol Use: No Hx Substance Use: No Preferred Language: Danish Communication Ability: Effective 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 Beliefs That Will Affect Care: None marital status: Current Living Situation: Spouse current occupational status: employed Feels Safe at Home: Yes Assistive Devices: Glasses Allergies Allergies Allergy/AdvReac Type Severity Reaction Status Date / Time dextromethorphan Allergy Unknown Hives Verified 03/28/20 23:33 guaifenesin Allergy Unknown Hives Verified 03/28/20 23:33 pseudoephedrine AdvReac Severe Rash Verified 03/28/20 23:33 [From Sudafed] Home Meds Home Medications Medication Instructions Recorded Confirmed blood sugar diagnostic #10 ea 01/19/19 01/28/20 lancets 30 gauge #25 ea 01/19/19 01/28/20 allopurinol 300 mg PO QAM 12/20/19 03/28/20 olmesartan-hydrochlorothiazide 1 tab PO DAILY 03/28/20 03/28/20 Previous Rx's Medication Instructions Recorded aspirin 81 mg PO QAM #30 tab 09/03/19 atorvastatin 40 mg tablet 40 mg PO QAM #90 tab 12/18/19 metformin 500 mg tablet 1,000 mg PO BID #360 tab 12/18/19 tadalafil 5 mg tablet 5 mg PO DAILY PRN #20 tab 01/28/20 Results & Data (ED) Vital Signs Vital Signs - 24 hr 03/28/20 19:25 03/28/20 21:00 03/28/20 22:36 Temperature 36.6 C Temperature Source Oral Pulse Rate - Lying 71 Pulse Rate - Sitting 82 Pulse Rate - Standing 77 Pulse Rate 77 Pulse Rate [Left Finger] 67 Pulse Rhythm [Left Finger] Respiratory Rate 20 18 Respiratory Effort / Characteristics Non-Labored Spontaneous Respiratory Depth Normal Respiratory Pattern Regular Blood Pressure - Lying 119/69 Blood Pressure - Sitting 102/72 Blood Pressure- Standing 122/76 Blood Pressure 134/82 Blood Pressure [Right Arm] 110/65 Blood Pressure Mean 99 Blood Pressure Mean [Right Arm] 80 Blood Pressure Position Sitting Blood Pressure Position [Right Arm] Pulse Oximetry 95 98 Oxygen Delivery Method Room Air Sepsis Recent Fever Within 48 Hours No Sepsis New/Unexplained Change in Mental Status N/A Sepsis Action Taken by Nursing No Action Required 03/28/20 23:22 Temperature Temperature Source Pulse Rate - Lying Pulse Rate - Sitting Pulse Rate - Standing Pulse Rate Pulse Rate [Left Finger] 64 Pulse Rhythm [Left Finger] Regular Respiratory Rate 16 Respiratory Effort / Characteristics Non-Labored Respiratory Depth Normal Respiratory Pattern Blood Pressure - Lying Blood Pressure - Sitting Blood Pressure- Standing Blood Pressure Blood Pressure [Right Arm] 101/68 Blood Pressure Mean Blood Pressure Mean [Right Arm] 79 Blood Pressure Position Blood Pressure Position [Right Arm] Lying Pulse Oximetry 97 Oxygen Delivery Method Room Air Sepsis Recent Fever Within 48 Hours Sepsis New/Unexplained Change in Mental Status Sepsis Action Taken by Detention Medications Current Medication List: was personally reviewed by me Laboratory Data Attestation: I reviewed the patient's lab results. Result diagrams: 03/28/20 19:49 03/28/20 19:49 Lab Results 03/28/20 03/28/20 03/28/20 Range/Units 19:42 19:49 19:49 WBC 6.07 (4.8-10.8) K/uL RBC 5.39 (4.7-6.1) M/uL Hgb 15.3 (14.0-18.0) g/dL Hct 44.0 (42-52) % MCV 81.6 (80-100) fL MCH 28.4 (25-34) pg MCHC 34.8 (32-36) g/dL RDW Std Deviation 41.8 (36.4-46.3) fL RDW Coeff of Tenzin 14.0 (11.5-14.5) % Plt Count 247 (130-400) K/uL MPV 10.2 (7.4-10.4) fL Immature Gran % (Auto) 0.2 % Neut % (Auto) 50.0 % Lymph % (Auto) 37.7 % [place] % (Auto) 9.6 % Eos % (Auto) 2.3 % Baso % (Auto) 0.2 % Neut # (Auto) 3.04 (1.4-6.5) K/uL Lymph # (Auto) 2.29 (1.2-3.4) K/uL [place] # (Auto) 0.58 (0.11-0.59) K/uL Eos # (Auto) 0.14 (0-0.5) K/uL Baso # (Auto) 0.01 (0-0.2) K/uL Immature Gran # (Auto) 0.01 (0.00-0.02) K/uL Sodium 137 (136-145) mmol/L Potassium 3.1 L (3.5-5.1) mmol/L Chloride 103 (98-107) mmol/L Carbon Dioxide 25 (21-32) mmol/L Anion Gap 9.0 (3-11) BUN 19 H (7-18) mg/dl Creatinine 1.17 (0.6-1.4) mg/dl Est Cr Clr Drug Dosing 71.8 ml/min Est GFR ( Amer) 72.8 Est GFR (Non-Af Amer) 62.8 BUN/Creatinine Ratio 16.2 (10-20) Glucose 177 H (70-99) mg/dl POC Glucose 184 H (70-99) mg/dl Calcium 9.9 (8.5-10.1) mg/dl Magnesium 1.8 (1.8-2.4) mg/dl Total Bilirubin 0.7 (0.2-1) mg/dl AST 18 (15-37) U/L ALT 42 (12-78) U/L Alkaline Phosphatase 88 (45-117) U/L Troponin I < 0.015 (0-0.045) ng/ml Total Protein 7.3 (6.4-8.2) gm/dl Albumin 3.9 (3.4-5.0) gm/dl Globulin 3.4 (2.5-4.0) gm/dl Albumin/Globulin Ratio 1.2 (0.9-2) Urine Color Urine Appearance (Clear) Urine pH (4.5-7.5) Ur Specific [place] (1.000-1.030) Urine Protein (Negative) Urine Glucose (UA) (Negative) Urine Ketones (Negative) Urine Blood (Negative) Urine Nitrite (Negative) Urine Bilirubin (Negative) Urine Urobilinogen (Negative) Ur Leukocyte Esterase (Negative) COVID-19 Eval Order 03/28/20 03/28/20 Range/Units 21:22 23:15 WBC (4.8-10.8) K/uL RBC (4.7-6.1) M/uL Hgb (14.0-18.0) g/dL Hct (42-52) % MCV (80-100) fL MCH (25-34) pg MCHC (32-36) g/dL RDW Std Deviation (36.4-46.3) fL RDW Coeff of Tenzin (11.5-14.5) % Plt Count (130-400) K/uL MPV (7.4-10.4) fL Immature Gran % (Auto) % Neut % (Auto) % Lymph % (Auto) % [place] % (Auto) % Eos % (Auto) % Baso % (Auto) % Neut # (Auto) (1.4-6.5) K/uL Lymph # (Auto) (1.2-3.4) K/uL [place] # (Auto) (0.11-0.59) K/uL Eos # (Auto) (0-0.5) K/uL Baso # (Auto) (0-0.2) K/uL Immature Gran # (Auto) (0.00-0.02) K/uL Sodium (136-145) mmol/L Potassium (3.5-5.1) mmol/L Chloride (98-107) mmol/L Carbon Dioxide (21-32) mmol/L Anion Gap (3-11) BUN (7-18) mg/dl Creatinine (0.6-1.4) mg/dl Est Cr Clr Drug Dosing ml/min Est GFR ( Amer) Est GFR (Non-Af Amer) BUN/Creatinine Ratio (10-20) Glucose (70-99) mg/dl POC Glucose (70-99) mg/dl Calcium (8.5-10.1) mg/dl Magnesium (1.8-2.4) mg/dl Total Bilirubin (0.2-1) mg/dl AST (15-37) U/L ALT (12-78) U/L Alkaline Phosphatase (45-117) U/L Troponin I (0-0.045) ng/ml Total Protein (6.4-8.2) gm/dl Albumin (3.4-5.0) gm/dl Globulin (2.5-4.0) gm/dl Albumin/Globulin Ratio (0.9-2) Urine Color Yellow Urine Appearance Clear (Clear) Urine pH 5.0 (4.5-7.5) Ur Specific [place] 1.036 H (1.000-1.030) Urine Protein Negative (Negative) Urine Glucose (UA) 3+ H (Negative) Urine Ketones Trace H (Negative) Urine Blood Negative (Negative) Urine Nitrite Negative (Negative) Urine Bilirubin Negative (Negative) Urine Urobilinogen Negative (Negative) Ur Leukocyte Esterase Negative (Negative) COVID-19 Eval [facility] Administered Medications Discontinued Medications Sodium Chloride (Nss 1000ml) 1,000 mls @ 999 mls/hr IV .Q1H1M ONE Stop: 03/28/20 21:50 Last Infusion: 03/28/20 22:21 Dose: 0 mls/hr Documented by: [id number] Admin: 03/28/20 21:20 Dose: 999 mls/hr Documented by: [id number] Potassium Chloride (Potassium Chloride Crtab 20 Meq Tabcr) 40 meq PO NOW STA Stop: 03/28/20 20:52 Last Admin: 03/28/20 21:21 Dose: 40 meq Documented by: [id number] Discharge Plan Visit Data Chief Complaint: Hyperglycemia Stated Complaint: hyperglycemia ED Provider: Marcello Lin Discharge Problem: Acute electrocardiogram changes, Weakness, SOB (shortness of breath) Patient Disposition: Admitted As Inpatient Condition: Good Forms Stand Alone Forms: [facility], Virtual Emergency Department, Important Visit Information Prescriptions Prescriptions: No Action metformin 500 mg tablet 1,000 mg PO BID Qty: 360 RF: 3 atorvastatin 40 mg tablet 40 mg PO QAM Qty: 90 RF: 3 (DME) lancets [OneTouch Delica Lancets] 30 gauge misc See Dose Instructions .ROUTE .MEDSUPPLY Qty: 25 RF: 0 (DME) OneTouch Verio test strips strip See Dose Instructions .ROUTE .MEDSUPPLY Qty: 10 RF: 0 tadalafil [Cialis] 5 mg tablet 5 mg PO DAILY PRN (Reason: sexual activity) Qty: 20 RF: 5 allopurinol 300 mg tablet 300 mg PO QAM RF: 0 aspirin 81 mg Tablet,Delayed Release (Dr/Ec) 81 mg PO QAM Qty: 30 RF: 0 olmesartan-hydrochlorothiazide 40-25 mg tablet 1 tab PO DAILY RF: 0 Referrals Referrals: Jerman Soriano MD [Primary Care Provider] -
[2020-03-28 21:04] LABS: Magnesium 1.8 mg/dl (1.8-2.4)
[2020-03-28 21:17] LABS: Troponin I < 0.015 ng/ml (0-0.045)
[2020-03-28 21:39] LABS: Appearance Urine Clear (Clear); Bilirubin Urine Negative (Negative); Blood Urine Negative (Negative); Color Urine Yellow; Glucose Urine UA 3+ (Negative); Ketones Urine Trace (Negative); Leukocyte Esterase Urine Negative (Negative); Nitrite Urine Negative (Negative); Protein Urine Negative (Negative); Specific Gravity Urine 1.036 (1.000-1.030); Urobilinogen Urine Negative (Negative)
--- NOTE | 2020-03-28 23:53 | History & Physical Report ---
Date of Service March 28, 2020 Assessment & Plan (1) Weakness: Patient with weakness, fatigue following episodes of diarrhea. Appears slightly dehydrated on exam with hypokalemia. He has frequent pACs noted on EKG - states that he has had "an extra heart beat" for a long time. Denies C P/palpitations. No focal weakness -IV hydration, electrolyte repletion, repeat BMP in AM -Check TSH in AM - patient reports some recent chills and cold intolerance Present on Admission?: Yes (2) Hypokalemia: K=3.1. Administered 80mEq po -Repeat BMP in AM Present on Admission?: Yes (3) MIRANDA (dyspnea on exertion): Patient with mild MIRANDA and decreased exercise tolerance - ?dehydration, hypokalemia. Had an echo in August which was largely normal Present on Admission?: Yes (4) HTN (hypertension): Blood pressure stable -Continue Olmesartan/HCTZ -Continue to monitor Present on Admission?: Yes (5) Hyperlipidemia: Chronic. Stable -Continue Atorvastatin (6) DM type 2 (diabetes mellitus, type 2): Patient reports elevated blood sugars over the last few days which is atypical for him. ?if glucometer is malfunctioning -Monitor blood sugars -Hold metformin -Lantus 7u BID with ISS based on weight, low stress level - F/E/N - NSS at 125mL/hr x 2 liters, Mg and K repletion, Heart healthy/CC diet as tolerated Ppx - low risk for DVT Code - DNR/DNI per discussion with patient Dispo - Observation to medical Present on Admission?: Yes History of Present Illness Chief Complaint: fatigue, MIRANDA Primary Care Provider: Jerman Soriano MD [place] is a pleasant 70yo male with history of DM, HTN, HLP and Gout presenting with 2-3 days of fatigue, weakness, mild MIRANDA and exercise intolerance. He notes that his blood sugars have been considerably higher than normal. Patient reports overall adequate control of blood sugars - [id number]=8 on 01/25/20. He states that blood sugar was 270 on 03/26/20. He felt fatigued and weak all day on 03/27/20. Yesterday he had two episodes of watery diarrhea, non-bloody/non-mucoid. Blood sugars elevated to 370. He reports some MIRANDA and exercise intolerance Denies CP/palpitations/SOB/cough/fevers/sweats. He does have some chills, cold intolerance as well as dizziness and light-headedness. No additional complaints Pre-admission Covid-testing as recommended by infection control = NEGATIVE ER Course: NSS x 1L, KCL x 40mEq Allergies Allergy/AdvReac Type Severity Reaction Status Date / Time dextromethorphan Allergy Unknown Hives Verified 03/28/20 23:33 guaifenesin Allergy Unknown Hives Verified 03/28/20 23:33 pseudoephedrine AdvReac Severe Rash Verified 03/28/20 23:33 [From [facility]] Home Medications Medication Instructions Recorded Confirmed Type blood sugar diagnostic #10 ea 01/19/19 01/28/20 History lancets 30 gauge #25 ea 01/19/19 01/28/20 History aspirin 81 mg PO QAM #30 tab 09/03/19 03/28/20 Rx atorvastatin 40 mg tablet 40 mg PO QAM #90 tab 12/18/19 03/28/20 Rx metformin 500 mg tablet 1,000 mg PO BID #360 tab 12/18/19 03/28/20 Rx allopurinol 300 mg PO QAM 12/20/19 03/28/20 History tadalafil 5 mg tablet 5 mg PO DAILY PRN #20 tab 01/28/20 03/28/20 Rx olmesartan-hydrochlorothiazide 1 tab PO DAILY 03/28/20 03/28/20 History Past Med/Surg History Medical History Benign paroxysmal positional vertigo of left ear HX Cigar smoker OCC DM type 2 (diabetes mellitus, type 2) Dysfunction of left eustachian tube HX Episodic tobacco dependence Erectile dysfunction Gout, joint HX Herniated disc LUMBAR/FOLLOWS CHIRO HTN (hypertension) Hyperlipidemia Mixed conductive and sensorineural hearing loss of left ear with restricted hearing of right ear Obesity Premature atrial contraction PT DENIES HX IRREGULAR HEART BEAT Snores NO SLEEP STUDY Surgical History History of colonoscopy S/P tube myringotomy HX LEFT EAR TUBE PLACEMENT AND SINCE REMOVED Family History Father Other specified forms of hearing loss Lung cancer Hypertension Stroke Mother Cancer Sister Hypertension Other Family history of diabetes mellitus in father Denies family history of Myocardial infarction Social History Smoking Status: Current some day smoker Tobacco Type: Cigars Cigarettes Per Day: CIGARS - 2 A WEEK AVERAGE / ADVISED NPO; Second Hand Exposure: No; Hx Alcohol Use: No Hx Substance Use: No Preferred Language: Malay Communication Ability: Effective Software Business Analyst Required: No Beliefs That Will Affect Care: None marital status: Current Living Situation: Spouse current occupational status: employed Feels Safe at Home: Yes Assistive Devices: Glasses Review of Systems Review of Systems: All systems reviewed & are unremarkable except as noted in HPI & below Physical Exam Physical Exam: General: patient resting comfortably, NAD, non-toxic in appearance, AA&O x 4 Skin: warm, dry, intact, no rashes or lesions HEENT: NC/AT, PERRL, EOMI, anicteric sclera, conjunctiva without injection, external ear normal to inspection and nontender, nares patent, moist mucus membranes, dentition intact, no oropharyngeal lesions, neck supple, trachea midline, no LAD, no thyromegaly, no JVD Heart: +S1/S2, regularly irregular, no m/r/g Lungs: equal air entry bilaterally, no rales/rhonchi/wheezes Abd: +BS, soft, NT/ND, no masses/organomegaly/ascites Ext: warm, 2+ pulses in UE/LE bilaterally, no clubbing/cyanosis or edema Neuro: nonfocal, patient AA&O x 4, speech intact, no facial droop, moving all extremities on command with equal strength 5/5 Results & Data Results & Data ([facility]) Vital Signs (Past 12 Hours) Vital Signs Temp Pulse Pulse Resp BP BP Pulse Ox 03/28/20 23:22 64 16 101/68 97 03/28/20 22:36 67 18 110/65 98 03/28/20 19:25 36.6 C 77 20 134/82 95 Laboratory Results Lab Results 03/28/20 03/28/20 03/28/20 Range/Units 19:42 19:49 19:49 WBC 6.07 (4.8-10.8) K/uL RBC 5.39 (4.7-6.1) M/uL Hgb 15.3 (14.0-18.0) g/dL Hct 44.0 (42-52) % MCV 81.6 (80-100) fL MCH 28.4 (25-34) pg MCHC 34.8 (32-36) g/dL RDW Std Deviation 41.8 (36.4-46.3) fL RDW Coeff of Tenzin 14.0 (11.5-14.5) % Plt Count 247 (130-400) K/uL MPV 10.2 (7.4-10.4) fL Immature Gran % (Auto) 0.2 % Neut % (Auto) 50.0 % Lymph % (Auto) 37.7 % [place] % (Auto) 9.6 % Eos % (Auto) 2.3 % Baso % (Auto) 0.2 % Neut # (Auto) 3.04 (1.4-6.5) K/uL Lymph # (Auto) 2.29 (1.2-3.4) K/uL [place] # (Auto) 0.58 (0.11-0.59) K/uL Eos # (Auto) 0.14 (0-0.5) K/uL Baso # (Auto) 0.01 (0-0.2) K/uL Immature Gran # (Auto) 0.01 (0.00-0.02) K/uL Sodium 137 (136-145) mmol/L Potassium 3.1 L (3.5-5.1) mmol/L Chloride 103 (98-107) mmol/L Carbon Dioxide 25 (21-32) mmol/L Anion Gap 9.0 (3-11) BUN 19 H (7-18) mg/dl Creatinine 1.17 (0.6-1.4) mg/dl Est Cr Clr Drug Dosing 71.8 ml/min Est GFR ( Amer) 72.8 Est GFR (Non-Af Amer) 62.8 BUN/Creatinine Ratio 16.2 (10-20) Glucose 177 H (70-99) mg/dl POC Glucose 184 H (70-99) mg/dl Calcium 9.9 (8.5-10.1) mg/dl Magnesium 1.8 (1.8-2.4) mg/dl Total Bilirubin 0.7 (0.2-1) mg/dl AST 18 (15-37) U/L ALT 42 (12-78) U/L Alkaline Phosphatase 88 (45-117) U/L Troponin I < 0.015 (0-0.045) ng/ml Total Protein 7.3 (6.4-8.2) gm/dl Albumin 3.9 (3.4-5.0) gm/dl Globulin 3.4 (2.5-4.0) gm/dl Albumin/Globulin Ratio 1.2 (0.9-2) Urine Color Urine Appearance (Clear) Urine pH (4.5-7.5) Ur Specific [place] (1.000-1.030) Urine Protein (Negative) Urine Glucose (UA) (Negative) Urine Ketones (Negative) Urine Blood (Negative) Urine Nitrite (Negative) Urine Bilirubin (Negative) Urine Urobilinogen (Negative) Ur Leukocyte Esterase (Negative) COVID-19 Eval Order SARS-CoV-2, RNA, NAAT (NEGATIVE) 03/28/20 03/28/20 03/28/20 Range/Units 21:22 23:15 23:15 WBC (4.8-10.8) K/uL RBC (4.7-6.1) M/uL Hgb (14.0-18.0) g/dL Hct (42-52) % MCV (80-100) fL MCH (25-34) pg MCHC (32-36) g/dL RDW Std Deviation (36.4-46.3) fL RDW Coeff of Tenzin (11.5-14.5) % Plt Count (130-400) K/uL MPV (7.4-10.4) fL Immature Gran % (Auto) % Neut % (Auto) % Lymph % (Auto) % [place] % (Auto) % Eos % (Auto) % Baso % (Auto) % Neut # (Auto) (1.4-6.5) K/uL Lymph # (Auto) (1.2-3.4) K/uL [place] # (Auto) (0.11-0.59) K/uL Eos # (Auto) (0-0.5) K/uL Baso # (Auto) (0-0.2) K/uL Immature Gran # (Auto) (0.00-0.02) K/uL Sodium (136-145) mmol/L Potassium (3.5-5.1) mmol/L Chloride (98-107) mmol/L Carbon Dioxide (21-32) mmol/L Anion Gap (3-11) BUN (7-18) mg/dl Creatinine (0.6-1.4) mg/dl Est Cr Clr Drug Dosing ml/min Est GFR ( Amer) Est GFR (Non-Af Amer) BUN/Creatinine Ratio (10-20) Glucose (70-99) mg/dl POC Glucose (70-99) mg/dl Calcium (8.5-10.1) mg/dl Magnesium (1.8-2.4) mg/dl Total Bilirubin (0.2-1) mg/dl AST (15-37) U/L ALT (12-78) U/L Alkaline Phosphatase (45-117) U/L Troponin I (0-0.045) ng/ml Total Protein (6.4-8.2) gm/dl Albumin (3.4-5.0) gm/dl Globulin (2.5-4.0) gm/dl Albumin/Globulin Ratio (0.9-2) Urine Color Yellow Urine Appearance Clear (Clear) Urine pH 5.0 (4.5-7.5) Ur Specific [place] 1.036 H (1.000-1.030) Urine Protein Negative (Negative) Urine Glucose (UA) 3+ H (Negative) Urine Ketones Trace H (Negative) Urine Blood Negative (Negative) Urine Nitrite Negative (Negative) Urine Bilirubin Negative (Negative) Urine Urobilinogen Negative (Negative) Ur Leukocyte Esterase Negative (Negative) COVID-19 Eval Order Covid19 IDNow [facility] SARS-CoV-2, RNA, NAAT NEGATIVE (NEGATIVE) ECG Additional Comments: SR at 71bpm, PACs in pattern of bigeminy Code Status & VTE Plan Code Status DNR/DNI PG Care Time/CCT Total # of Minutes Spent Total Time Spent with Patient: Total time spent is greater than 50% in coordination of care (as documented) at patient's floor/unit and/or counseling patient: Coding Level of Care Code 24998 OBS Care - Level 3 Diagnoses Weakness R53.1 Hypokalemia E87.6 MIRANDA (dyspnea on exertion) R06.09 HTN (hypertension) I10 Hypertension type: essential hypertension Hyperlipidemia E78.5 Hyperlipidemia type: unspecified DM type 2 (diabetes mellitus, type 2) E11.9 Diabetes mellitus correction insulin use: without intermediate frame tender use Diabetes mellitus complication status: without complication (1) HTN (hypertension) Hypertension type: essential hypertension Qualified Code(s): I10 - Essential (primary) hypertension (2) Hyperlipidemia Hyperlipidemia type: unspecified Qualified Code(s): E78.5 - Hyperlipidemia, unspecified (3) DM type 2 (diabetes mellitus, type 2) Diabetes mellitus intermediate frame tender insulin use: without correction use Diabetes mellitus complication status: without complication Qualified Code(s): E11.9 - Type 2 diabetes mellitus without complications
[2020-03-29] MEDS ORDERED: ACETAMINOPHEN 325 MG TAB PO PRN (01:51)
[2020-03-29] MEDS ORDERED: CARBOHYDRATES FOR HYPOGLYCEMIA PO PRN (01:51)
[2020-03-29] MEDS ORDERED: DEXTROSE 50% 50 ML SYRINGE IV PRN (01:51)
[2020-03-29] MEDS ORDERED: POTASSIUM CHLORIDE CRTAB 20 MEQ TABCR PO STA (01:51)
[2020-03-29] MEDS ORDERED: ONDANSETRON INJ 2 MG/ML 2 ML VIAL IV PRN (01:51)
[2020-03-29] MEDS ORDERED: GLUCOSE 10 TABS/TUBE PO PRN (01:51)
[2020-03-29] MEDS: SODIUM CHLORIDE 0.9% 1000ML 1,000 ML IV SCH ×2 (01:51→10:53)
[2020-03-29] MEDS ORDERED: GLUCOSE 40% GEL 15 GM TUBE PO PRN (01:51)
[2020-03-29] MEDS ORDERED: GLUCAGON FOR INJ 1 MG VIAL SQ PRN (01:51)
[2020-03-29] MEDS: MAGNESIUM SULFATE / D5W 1 GM/100 ML BAG IV SCH ×2 (02:47→04:49)
[2020-03-29 08:47] LABS: BUN Creatinine Ratio 17.6 (10-20); Creatinine Clr Calc Pharmacy 76.3 ml/min; Est GFR (African American) 78.4; Est GFR (Non-African American) 67.7; Potassium 3.6 mmol/L (3.5-5.1)
[2020-03-29 08:59] LABS: Thyroid Stimulating Hormone 3.36 uIu/ml (0.300-4.500)
[2020-03-29] MEDS ORDERED: OLMESARTAN MEDOXOMIL 40 MG TAB PO SCH (09:00)
[2020-03-29] MEDS ORDERED: hydroCHLOROthiazide 25 MG TAB PO SCH (09:00)
--- NOTE | 2020-03-29 09:09 | XRay Report ---
XR chest 2V PA/lateral CLINICAL HISTORY: MIRANDA, fatigue; eval pneumonia COMPARISON STUDY: Chest radiograph December 20, 2019. FINDINGS: Lung volumes are normal. Lungs are clear. There is no pneumothorax or pleural effusion. Car diac size is stable. Mediastinal contours are normal. There is no evidence for pulmonary edema. IMPRESSION: No acute cardiopulmonary findings. ACT 112: Negative or not required by law. Electronically signed by: Jose D Kovacs M.D. 03/29/2020 9:08 AM
[2020-03-29] MEDS: ASPIRIN 81 MG ECTAB PO SCH (09:26)
[2020-03-29] MEDS: ATORVASTATIN 40 MG TAB PO SCH (09:26)
[2020-03-29] MEDS: allopurinoL 300 MG TAB PO SCH (09:26)
[2020-03-29] MEDS: OLMESARTAN MEDOXOMIL 40 MG TAB PO SCH (09:32)
[2020-03-29] MEDS: INSULIN ASPART 100 UNITS/ML 3 ML PEN SC SCH ×4 (09:36→20:54)
[2020-03-29] MEDS: INSULIN GLARGINE SOLOSTAR 100 UNITS/ML 3 ML PEN SC SCH ×2 (09:37→20:53)
--- NOTE | 2020-03-29 10:27 | Medical Student H&P ---
Date of Service March 29, 2020 Assessment & Plan (1) Fatigue: Mr. [place] is a 70 yo patient with a PMH sig for DM2 HTN and HLD who presents with acute onset fatigue. - Infection: Covid negative, no recent travel or sick contacts no signs of infection process: normal WBC, no fever, chills. No cough, sputum, Normal CXR, excluding atypical Pneumonia. - Psych: no clinical signs of depression, has normal appetite, enjoys golfing on weekends, does not feel down or depressed. - Thyroid: normal TSH levels at 3.5. T4 not measured. Decreased cold tolerance. - Sleep: avg 5-6 hr/night, snores, naps during the day, wakes up occasionally during the night. Signs of TOBIAS. has not had a sleep study done. Plan: -evaluate t4 levels to get a better idea about thyroid function -order sleep study if patient is interested in being on a cpap -check ferritin levels -check D,b12 levels -Order Lyme test, start on doxycycline in the meantime. (2) DM type 2 (diabetes mellitus, type 2): higher than usual glucose levels the past several days. 200-300 @ home. 177 here. A1C 7.0. Glucose urea 3+. S.036. Trace ketones. Plan: Possibly due to physical stress. Continue metformin as we investigate cause of generalized fatigue Diabetes mellitus complication status: without complication Diabetes mellitus tumor registrar insulin use: without tumor registrar use Qualified Code(s): E11.9 - Type 2 diabetes mellitus without complications (3) MIRANDA (dyspnea on exertion): Experiences SOB when walking short distances along with some chest discomfort. This does not seem to be a recent problem. Does have risk factors like HTN, HLD, DM2, Obesity, and smoking as well as a family hx of CAD. EKG shows PAC and some ST segment depressions. Troponin undetected xr. Crp negative. Repeat EKG does not seem to have depressd ST segments as noted on first EKG. PAC still there. Cardiac stress test normal. No chest pain, jaw pain, left arm pain. Less concerning if an ischemic process. Plan: Cardiology consulted. Reassuring stress test and labs. Continue to monitor overnight. (4) Hyperlipidemia: Hyperlipidemia type: unspecified Qualified Code(s): E78.5 - Hyperlipidemia, unspecified (5) Hypokalemia: Was hypokalemic at 3.1 which has elevated to 3.5 today. Plan: continue to monitor (6) HTN (hypertension): seems to be well controlled with medication. 131/83 today continue olmesartan-HCTZ Hypertension type: essential hypertension Qualified Code(s): I10 - Essential (primary) hypertension Admission and Anticipated Discharge Date Admission Date: March 28, 2020 History of Present Illness Chief Complaint: Fatigue Primary Care Provider: Jerman Soriano MD Mr. [place] is a 70 male with a H sig for DM2, HTN, HLD who presents with generalized fatigue x 3 days. He states that his blood sugars have been unusually high for the last three days ranging in the 200-300s. He states that he has not been feeling well overall for the past 3 days. On Saturday, he had a diarrhea episode, with no blood or mucus, along with feeling unwell so he came in for an evaluation. He denies fevers, chills, nights sweats, cough, sputum, rhinorrhea, headaches, nausea, vomiting, known sick contacts, or recent travel. He admits to MIRANDA while walking short distances along with short episodes of chest discomfort. He states that he has had this for a few years. He denies chest pain, SOB with rest, radiating left arm pain, jaw pain, numbness, tingling, pre-syncope, syncope. He does not feel down or depressed, he enjoys golfing and he has had normal appetite. He sleeps about an average of 5-6 hours/ night. He wakes up a few times during the night to go to the bathroom, or sometimes for unknown reasons. His sleep matt on his phone indicates that he wakes up several times. He has been told by his that he snores. He does fall asleep when he watches tv. He also admits to feeling colder than usual lately. polyuria? polydipsia? changes in cris? hair? Allergies Allergy/AdvReac Type Severity Reaction Status Date / Time dextromethorphan Allergy Unknown Hives Verified 03/28/20 23:33 guaifenesin Allergy Unknown Hives Verified 03/28/20 23:33 pseudoephedrine AdvReac Severe Rash Verified 03/28/20 23:33 [From [facility]] Home Medications Medication Instructions Recorded Confirmed Type blood sugar diagnostic #10 ea 01/19/19 01/28/20 History lancets 30 gauge #25 ea 01/19/19 01/28/20 History aspirin 81 mg PO QAM #30 tab 09/03/19 03/28/20 Rx atorvastatin 40 mg tablet 40 mg PO QAM #90 tab 12/18/19 03/28/20 Rx metformin 500 mg tablet 1,000 mg PO BID #360 tab 12/18/19 03/28/20 Rx allopurinol 300 mg PO QAM 12/20/19 03/28/20 History tadalafil 5 mg tablet 5 mg PO DAILY PRN #20 tab 01/28/20 03/28/20 Rx olmesartan-hydrochlorothiazide 1 tab PO DAILY 03/28/20 03/28/20 History Past Med/Surg History Medical History Benign paroxysmal positional vertigo of left ear HX Cigar smoker OCC DM type 2 (diabetes mellitus, type 2) Dysfunction of left eustachian tube HX Episodic tobacco dependence Erectile dysfunction Gout, joint HX Herniated disc LUMBAR/FOLLOWS CHIRO HTN (hypertension) Hyperlipidemia Mixed conductive and sensorineural hearing loss of left ear with restricted hearing of right ear Obesity Premature atrial contraction PT DENIES HX IRREGULAR HEART BEAT Snores NO SLEEP STUDY Surgical History History of colonoscopy S/P tube myringotomy HX LEFT EAR TUBE PLACEMENT AND SINCE REMOVED Family History Father Other specified forms of hearing loss Lung cancer Hypertension Stroke Mother Cancer Sister Hypertension Other Family history of diabetes mellitus in father Denies family history of Myocardial infarction Social History Smoking Status: Current some day smoker Tobacco Type: Cigars Cigarettes Per Day: Patient has Cigar every once in a while during month.; Second Hand Exposure: No; Hx Alcohol Use: Yes Alcohol type: beer Alcohol Intake Frequency Comment: social Hx Substance Use: No Preferred Language: German Communication Ability: Effective 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 Well Service Required: No Beliefs That Will Affect Care: None marital status: Current Living Situation: Spouse current occupational status: employed Feels Safe at Home: Yes Assistive Devices: Glasses Review of Systems + fatigue; no fever, no chills and no sweats no cough and no chest congestion + dyspnea and + dyspnea on exertion; no chest pain, no chest pain at rest, no chest pain with activity, no radiating jaw, neck or arm pain, no dyspnea at rest and no orthopnea + diarrhea/loose stools; no nausea, no vomiting, no constipation and no blood in stools + generalized weakness; no gait abnormality, no falls, no localized weakness, no paralysis, no loss of sensation, no tingling, no numbness, no paresthesia, no lack of coordination, no radiating pain, no syncope and no headache(s) no behavioral changes, no depression and no change in appetite Physical Exam Constitutional: well developed and well nourished; no acute distress Respiratory: normal respiratory effort Auscultation: lungs clear to auscultation bilaterally; no rales, no rhonchi and no wheezes Cardiovascular: Rate/Rhythm: regular rate and regular rhythm Vessels: no JVD Extremities: no calf tenderness, no pedal edema and no edema Gastrointestinal (Abdomen): Inspection/Auscultation: abdomen normal to inspection and normal bowel sounds; abdomen not distended Percussion/Palpation: abdomen nontender, no guarding and abdomen not rigid Skin: no rashes, warm and dry no rashes, no jaundice and no dry skin Psychiatric: Orientation: alert and oriented x 3 Apperance: appropriately dressed, appropriately groomed and appeared stated age Eye Contact: good eye contact Speech: normal rate/rhythm/volume of speech Results & Data ([facility]) Vital Signs (Past 12 Hours) Vital Signs Temp Pulse Pulse Resp BP BP Pulse Ox 03/29/20 07:21 36.4 C L 63 18 125/79 95 03/29/20 01:25 36.4 C L 67 18 135/79 97 03/29/20 01:12 60 16 100/69 97 03/29/20 00:37 68 18 125/70 97 03/28/20 23:22 64 16 101/68 97 03/28/20 22:36 67 18 110/65 98
[2020-03-29 13:29] LABS: C Reactive Protein 0.39 mg/dl (0-0.29); Troponin I < 0.015 ng/ml (0-0.045)
[2020-03-29] MEDS ORDERED: PERFLUTREN LIPID MICROSPHERE (DEFINITY) IV ONE (15:27)
--- NOTE | 2020-03-29 16:04 | XCELERA ---
[id number]
--- NOTE | 2020-03-29 16:48 | Electrocardiogram Report ---
Test Reason : Blood Pressure : / mmHG Vent. Rate : 071 BPM Atrial Rate : 071 BPM P-R Int : 178 ms QRS Dur : 102 ms QT Int : 420 ms P-R-T Axes : 055 025 088 degrees QTc Int : 456 ms Sinus rhythm with Premature atrial complexes in a pattern of bigeminy Nonspecific ST and T wave abnormality Abnormal ECG When compared with ECG of 02-SEP-2019 21:00, QT has lengthened Confirmed by Larry Arora ([id number]) on 03/29/2020 4:48:35 PM Referred By: REFERRED SELF Confirmed By:Larry Arora
--- NOTE | 2020-03-29 17:03 | Electrocardiogram Report ---
Test Reason : Blood Pressure : / mmHG Vent. Rate : 067 BPM Atrial Rate : 067 BPM P-R Int : 166 ms QRS Dur : 096 ms QT Int : 426 ms P-R-T Axes : 054 004 068 degrees QTc Int : 450 ms Sinus rhythm with Premature atrial complexes in a pattern of bigeminy Nonspecific ST and T wave abnormality Abnormal ECG When compared with ECG of 28-MAR-2020 19:39, (unconfirmed) No significant change was found Confirmed by Larry Arora ([id number]) on 03/29/2020 5:02:39 PM Referred By: REFERRED SELF Confirmed By:Larry Arora
[2020-03-29] MEDS: DOXYCYCLINE HYCLATE 100 MG CAP PO SCH (18:28)
--- NOTE | 2020-03-29 20:14 | Hospitalist Progress Note ---
Date of Service March 29, 2020 Assessment & Plan (1) Weakness: Patient with weakness, fatigue following episodes of diarrhea. Appears slightly dehydrated on exam with hypokalemia. He has frequent pACs noted on EKG - states that he has had "an extra heart beat" for a long time. Denies C P/palpitations. No focal weakness -IV hydration, electrolyte repletion, repeat BMP in AM -Check TSH in AM - patient reports some recent chills and cold intolerance (2) Hypokalemia: K=3.1. Administered 80mEq po -Repeat BMP in AM (3) MIRANDA (dyspnea on exertion): Patient with mild MIRANDA and decreased exercise tolerance - ?dehydration, hypokalemia. Had an echo in August which was largely normal (4) HTN (hypertension): Blood pressure stable -Continue Olmesartan/HCTZ -Continue to monitor (5) Hyperlipidemia: Chronic. Stable -Continue Atorvastatin (6) DM type 2 (diabetes mellitus, type 2): Patient reports elevated blood sugars over the last few days which is atypical for him. ?if glucometer is malfunctioning -Monitor blood sugars -Hold metformin -Lantus 7u BID with ISS based on weight, low stress level - F/E/N - NSS at 125mL/hr x 2 liters, Mg and K repletion, Heart healthy/CC diet as tolerated Ppx - low risk for DVT Code - DNR/DNI per discussion with patient Dispo - Observation to medical Admission and Anticipated Discharge Date Admission Date: March 28, 2020 Results & Data Results & Data ([facility]) Vital Signs (Past 12 Hours) Vital Signs Temp Pulse Resp BP Pulse Ox 03/29/20 16:03 36.6 C 68 16 131/83 94 Laboratory Results Laboratory Results - last 24 hr 03/28/20 03/28/20 03/28/20 19:42 19:49 19:49 WBC 6.07 RBC 5.39 Hgb 15.3 Hct 44.0 MCV 81.6 MCH 28.4 MCHC 34.8 RDW Std Deviation 41.8 RDW Coeff of Tenzin 14.0 Plt Count 247 MPV 10.2 Immature Gran % (Auto) 0.2 Neut % (Auto) 50.0 Lymph % (Auto) 37.7 [place] % (Auto) 9.6 Eos % (Auto) 2.3 Baso % (Auto) 0.2 Neut # (Auto) 3.04 Lymph # (Auto) 2.29 [place] # (Auto) 0.58 Eos # (Auto) 0.14 Baso # (Auto) 0.01 Immature Gran # (Auto) 0.01 Sodium 137 Potassium 3.1 L Chloride 103 Carbon Dioxide 25 Anion Gap 9.0 BUN 19 H Creatinine 1.17 Est Cr Clr Drug Dosing 71.8 Est GFR ( Amer) 72.8 Est GFR (Non-Af Amer) 62.8 BUN/Creatinine Ratio 16.2 Glucose 177 H POC Glucose 184 H Calcium 9.9 Magnesium 1.8 Total Bilirubin 0.7 AST 18 ALT 42 Alkaline Phosphatase 88 Troponin I < 0.015 C-Reactive Protein Total Protein 7.3 Albumin 3.9 Globulin 3.4 Albumin/Globulin Ratio 1.2 TSH Urine Color Urine Appearance Urine pH Ur Specific [place] Urine Protein Urine Glucose (UA) Urine Ketones Urine Blood Urine Nitrite Urine Bilirubin Urine Urobilinogen Ur Leukocyte Esterase COVID-19 Eval Order SARS-CoV-2, RNA, NAAT 03/28/20 03/28/20 03/28/20 21:22 23:15 23:15 WBC RBC Hgb Hct MCV MCH MCHC RDW Std Deviation RDW Coeff of [place] Plt Count MPV Immature Gran % (Auto) Neut % (Auto) Lymph % (Auto) [place] % (Auto) Eos % (Auto) Baso % (Auto) Neut # (Auto) Lymph # (Auto) [place] # (Auto) Eos # (Auto) Baso # (Auto) Immature Gran # (Auto) Sodium Potassium Chloride Carbon Dioxide Anion Gap BUN Creatinine Est Cr Clr Drug Dosing Est GFR ( Amer) Est GFR (Non-Af Amer) BUN/Creatinine Ratio Glucose POC Glucose Calcium Magnesium Total Bilirubin AST ALT Alkaline Phosphatase Troponin I C-Reactive Protein Total Protein Albumin Globulin Albumin/Globulin Ratio TSH Urine Color Yellow Urine Appearance Clear Urine pH 5.0 Ur Specific [place] 1.036 H Urine Protein Negative Urine Glucose (UA) 3+ H Urine Ketones Trace H Urine Blood Negative Urine Nitrite Negative Urine Bilirubin Negative Urine Urobilinogen Negative Ur Leukocyte Esterase Negative COVID-19 Eval [facility] SARS-CoV-2, RNA, NAAT NEGATIVE 03/29/20 03/29/20 03/29/20 07:29 07:29 08:14 WBC RBC Hgb Hct MCV MCH MCHC RDW Std Deviation RDW Coeff of [place]enzin Plt Count MPV Immature Gran % (Auto) Neut % (Auto) Lymph % (Auto) [place] % (Auto) Eos % (Auto) Baso % (Auto) Neut # (Auto) Lymph # (Auto) [place] # (Auto) Eos # (Auto) Baso # (Auto) Immature Gran # (Auto) Sodium 139 Potassium 3.6 D Chloride 107 Carbon Dioxide 23 Anion Gap 9.0 BUN 19 H Creatinine 1.10 Est Cr Clr Drug Dosing 76.3 Est GFR ( Amer) 78.4 Est GFR (Non-Af Amer) 67.7 BUN/Creatinine Ratio 17.6 Glucose 154 H POC Glucose 146 H Calcium 9.0 Magnesium Total Bilirubin AST ALT Alkaline Phosphatase Troponin I < 0.015 C-Reactive Protein 0.39 H Total Protein Albumin Globulin Albumin/Globulin Ratio TSH 3.360 Urine Color Urine Appearance Urine pH Ur Specific [place] Urine Protein Urine Glucose (UA) Urine Ketones Urine Blood Urine Nitrite Urine Bilirubin Urine Urobilinogen Ur Leukocyte Esterase COVID-19 Eval Order SARS-CoV-2, RNA, NAAT 03/29/20 03/29/20 12:27 17:21 WBC RBC Hgb Hct MCV MCH MCHC RDW Std Deviation RDW Coeff of [place]enz[place] Plt Count MPV Immature Gran % (Auto) Neut % (Auto) Lymph % (Auto) [place] % (Auto) Eos % (Auto) Baso % (Auto) Neut # (Auto) Lymph # (Auto) [place] # (Auto) Eos # (Auto) Baso # (Auto) Immature Gran # (Auto) Sodium Potassium Chloride Carbon Dioxide Anion Gap BUN Creatinine Est Cr Clr Drug Dosing Est GFR ( Amer) Est GFR (Non-Af Amer) BUN/Creatinine Ratio Glucose POC Glucose 155 H 112 H Calcium Magnesium Total Bilirubin AST ALT Alkaline Phosphatase Troponin I C-Reactive Protein Total Protein Albumin Globulin Albumin/Globulin Ratio TSH Urine Color Urine Appearance Urine pH Ur Specific [place] Urine Protein Urine Glucose (UA) Urine Ketones Urine Blood Urine Nitrite Urine Bilirubin Urine Urobilinogen Ur Leukocyte Esterase COVID-19 Eval Order SARS-CoV-2, RNA, NAAT PG Care Time/CCT Total # of Minutes Spent Total Time Spent with Patient: Total time spent is greater than 50% in coordination of care (as documented) at patient's floor/unit and/or counseling patient: Coding Diagnoses Weakness R53.1 Hypokalemia E87.6 MIRANDA (dyspnea on exertion) R06.09 HTN (hypertension) I10 Hypertension type: essential hypertension Hyperlipidemia E78.5 Hyperlipidemia type: unspecified DM type 2 (diabetes mellitus, type 2) E11.9 Diabetes mellitus nursing home insulin use: without nursing home use Diabetes mellitus complication status: without complication (1) HTN (hypertension) Hypertension type: essential hypertension Qualified Code(s): I10 - Essential (primary) hypertension (2) Hyperlipidemia Hyperlipidemia type: unspecified Qualified Code(s): E78.5 - Hyperlipidemia, unspecified (3) DM type 2 (diabetes mellitus, type 2) Diabetes mellitus nursing home insulin use: without nursing home use Riki talavera complication status: without complication Qualified Code(s): E11.9 - Type 2 diabetes mellitus without complications
[2020-03-29 23:01] VITALS: O2SAT 96
[2020-03-30 07:40] VITALS: TEMP 97.7
[2020-03-30 08:23] LABS: Folate (Folic Acid) 15.3 ng/ml (>5.38)
[2020-03-30] MEDS: ASPIRIN 81 MG ECTAB PO SCH (09:54)
[2020-03-30] MEDS: DOXYCYCLINE HYCLATE 100 MG CAP PO SCH (09:55)
[2020-03-30] MEDS: allopurinoL 300 MG TAB PO SCH (09:55)
[2020-03-30] MEDS: ATORVASTATIN 40 MG TAB PO SCH (09:55)
[2020-03-30] MEDS: OLMESARTAN MEDOXOMIL 40 MG TAB PO SCH (09:55)
[2020-03-30] MEDS: INSULIN ASPART 100 UNITS/ML 3 ML PEN SC SCH ×2 (09:59→12:51)
[2020-03-30] MEDS: INSULIN GLARGINE SOLOSTAR 100 UNITS/ML 3 ML PEN SC SCH (10:02)
[2020-03-30 10:06] LABS: Lyme Ab IgG w/WB Rflx Negative (Negative); Lyme Ab IgM w/WB Rflx Negative (Negative)
--- NOTE | 2020-03-30 11:39 | Discharge Summary ---
Date of Service March 30, 2020 Admission HPI Per Admitting Provider Mr. Riley is a 70 male with a PMH sig for DM2, HTN, HLD who presents with generalized fatigue x 3 days. He states that his blood sugars have been unusually high for the last three days ranging in the 200-300s. He states that he has not been feeling well overall for the past 3 days. On Saturday, he had a diarrhea episode, with no blood or mucus, along with feeling unwell so he came in for an evaluation. He denies fevers, chills, nights sweats, cough, sputum, rhinorrhea, headaches, nausea, vomiting, known sick contacts, or recent travel. He admits to MIRANDA while walking short distances along with short episodes of chest discomfort. He states that he has had this for a few years. He denies chest pain, SOB with rest, radiating left arm pain, jaw pain, numbness, tingling, pre-syncope, syncope. He does not feel down or depressed, he enjoys golfing and he has had normal appetite. He sleeps about an average of 5-6 hours/ night. He wakes up a few times during the night to go to the bathroom, or sometimes for unknown reasons. His sleep matt on his phone indicates that he wakes up several times. He has been told by his that he snores. He does fall asleep when he watches tv. He also admits to feeling colder than usual lately. polyuria? polydipsia? changes in cris? hair? Discharge Data Allergies Allergy/AdvReac Type Severity Reaction Status Date / Time dextromethorphan Allergy Unknown Hives Verified 03/28/20 23:33 guaifenesin Allergy Unknown Hives Verified 03/28/20 23:33 pseudoephedrine AdvReac Severe Rash Verified 03/28/20 23:33 [facility] Consultations 03/28/20 22:46 ED Decision to Admit Stat Hospital Course (1) Weakness: Patient with weakness, fatigue following episodes of diarrhea. Appears slightly dehydrated on exam with hypokalemia. He has frequent pACs noted on EKG - states that he has had "an extra heart beat" for a long time. Denies CP/palpitations. No focal weakness -IV hydration, electrolyte repletion, repeat BMP in AM -Check TSH in AM - patient reports some recent chills and cold intolerance (2) Hypokalemia: K=3.1. Administered 80mEq po -Repeat BMP in AM (3) MIRANDA (dyspnea on exertion): Patient with mild MIRANDA and decreased exercise tolerance - ?dehydration, hypokalemia. Had an echo in August which was largely normal (4) HTN (hypertension): Blood pressure stable -Continue Olmesartan/HCTZ -Continue to monitor (5) Hyperlipidemia: Chronic. Stable -Continue Atorvastatin (6) DM type 2 (diabetes mellitus, type 2): Patient reports elevated blood sugars over the last few days which is atypical for him. ?if glucometer is malfunctioning -Monitor blood sugars -Hold metformin -Lantus 7u BID with ISS based on weight, low stress level - F/E/N - NSS at 125mL/hr x 2 liters, Mg and K repletion, Heart healthy/CC diet as tolerated Ppx - low risk for DVT Code - DNR/DNI per discussion with patient Dispo - Observation to medical Discharge Plan Discharge Items Patient Disposition: Home - Self-Care Reason For Visit: Shortness of breath, fatigue, fleeting chest pain Discharge Diagnosis: Shortness of breath, chest pain, fatigue, etc - resolved, exact etiology uncertain Condition on Discharge: Good Activity: As commented below Activity Comment: gradually increase activity over the next 3-5 days Non-emergency contact: Primary Care Provider Call non-emergency contact if: you have any medication questions, your symptoms worsen and you have a fever Follow-up/Referrals: Jerman Soriano MD [Primary Care Provider] - (see Dr Soriano within 5-7 days ) Diet: Carb Consistent or DM2 and Heart Healthy Addtl Attending Provider Instructions: You were admitted to the hospital for a variety of complaints including shortness of breath, chest pain (you had such a few days prior to presentation), diarrhea, fatigue, and simply feeling unwell. Your blood sugars were high as well. The following were checked and were either normal or negative - * COVID-19 testing * vitamin B12 level * thyroid level (TSH) * blood cultures (looking for bacteria in your blood) * lyme testing * chest x-ray (no pneumonia) * urinalysis (no UTI) * stress echocardiogram test - negative, normal heart function * folate level * blood counts and kidney level * liver tests Your potassium level was mildly low - likely due to your water pill - but replaced and normal before discharge. I am not certain as to the exact cause of your symptoms. Possibilities include a nonspecific virus, a tickborne disease, or heart disease that was not picked up on your stress test. Recommendations: 1. while awaiting other tick-borne testing please take doxycycline 100mg twice daily for 13 more days * doxycycline can occasionally cause heartburn * it can also cause a rash if you go out in the sun while taking it; thus, cover up well over the next 2 weeks 2. thiamine 200mg twice daily for 30 days; this may help improve your memory 3. keep a log of any chest symptoms - chest pain (even if mild), shortness of breath, etc. If you continue with these symptoms please have Dr Soriano refer you to cardiology for additional testing. 4. follow-up Dr Soriano 5-7 days 5. STOP your combined benicar-HCT pill; your blood pressure has been normal without the HCTZ water pill portion; simply take benicar (olmesartan) 40mg once daily; new script sent to [facility] Return to [facility] if - * you have fevers over 100 degrees * you have worsening shortness of breath * you have worsening, recurrent chest pains * any other concerns Pending Studies at Discharge: Yes Studies:: Anaplasmosis and Ehrlichia testing (tick borne disease testing) Stand-Alone Forms: My [facility], Smoking Cessation Medications and DC Order Prescriptions: New doxycycline hyclate 100 mg Capsule 100 mg PO BID 13 Days Qty: 26 RF: 0 olmesartan [Benicar] 40 mg Tablet 40 mg PO DAILY Qty: 30 RF: 2 thiamine HCl (vitamin B1) 100 mg tablet 200 mg PO BID 30 Days Qty: 120 RF: 0 Continued metformin 500 mg tablet 1,000 mg PO BID Qty: 360 RF: 3 atorvastatin 40 mg tablet 40 mg PO QAM Qty: 90 RF: 3 (DME) lancets [OneTouch Delica Lancets] 30 gauge misc See Dose Instructions .ROUTE .MEDSUPPLY Qty: 25 RF: 0 (DME) OneTouch Verio test strips strip See Dose Instructions .ROUTE .MEDSUPPLY Qty: 10 RF: 0 allopurinol 300 mg tablet 300 mg PO QAM RF: 0 aspirin 81 mg Tablet,Delayed Release (/Ec) 81 mg PO QAM Qty: 30 RF: 0 Discontinued tadalafil [Cialis] 5 mg tablet 5 mg PO DAILY PRN (Reason: sexual activity) Qty: 20 RF: 5 olmesartan-hydrochlorothiazide 40-25 mg tablet 1 tab PO DAILY RF: 0 Discharge Orders: Discharge Order (Routine); Ordered 03/30/20 Ordered By: Jerman Barone Admission Data Admit Date/Time: 03/28/20 23:52 Attending Provider: Jerman Barone Admit Provider: Melissa Alford Primary Care Provider: Jerman Soriano Other Providers: Melissa Alford Coding Diagnoses Weakness R53.1 Hypokalemia E87.6 MIRANDA (dyspnea on exertion) R06.09 HTN (hypertension) I10 Hypertension type: essential hypertension Hyperlipidemia E78.5 Hyperlipidemia type: unspecified DM type 2 (diabetes mellitus, type 2) E11.9 Diabetes mellitus tank terminal gauger insulin use: without tank terminal gauger use Diabetes mellitus complication status: without complication
[2020-03-30 11:57] VITALS: BP 114/75; PULSE 56
--- NOTE | 2020-03-30 20:12 | Med Student Discharge Summary ---
Date of Service March 30, 2020 Admission HPI Per Admitting Provider Mr. Riley is a 70 male with a H sig for DM2, HTN, HLD who presents with generalized fatigue x 3 days. He states that his blood sugars have been unusually high for the last three days ranging in the 200-300s. He states that he has not been feeling well overall for the past 3 days. On Saturday, he had a diarrhea episode, with no blood or mucus, along with feeling unwell so he came in for an evaluation. He denies fevers, chills, nights sweats, cough, sputum, rhinorrhea, headaches, nausea, vomiting, known sick contacts, or recent travel. He admits to MIRANDA while walking short distances along with short episodes of chest discomfort. He states that he has had this for a few years. He denies chest pain, SOB with rest, radiating left arm pain, jaw pain, numbness, tingling, pre-syncope, syncope. He does not feel down or depressed, he enjoys golfing and he has had normal appetite. He sleeps about an average of 5-6 hours/ night. He wakes up a few times during the night to go to the bathroom, or sometimes for unknown reasons. His sleep matt on his phone indicates that he wakes up several times. He has been told by his that he snores. He does fall asleep when he watches tv. He also admits to feeling colder than usual lately. polyuria? polydipsia? changes in cris? hair? Admission Exam (Per Admitting) Constitutional well developed and well nourished; no acute distress Respiratory normal respiratory effort Auscultation: lungs clear to auscultation bilaterally; no rales, no rhonchi and no wheezes Cardiovascular Rate/Rhythm: regular rate and regular rhythm Vessels: no JVD Extremities: no calf tenderness, no pedal edema and no edema Gastrointestinal (Abdomen) Inspection/Auscultation: abdomen normal to inspection and normal bowel sounds; abdomen not distended Percussion/Palpation: abdomen nontender, no guarding and abdomen not rigid Skin no rashes, warm and dry no rashes, no jaundice and no dry skin Psychiatric Orientation: alert and oriented x 3 Apperance: appropriately dressed, appropriately groomed and appeared stated age Eye Contact: good eye contact Speech: normal rate/rhythm/volume of speech Discharge Data Consultations 03/28/20 22:46 ED Decision to Admit Stat Hospital Course (1) Fatigue: Mr. Riley is a 70 yo patient with a PMH sig for DM2 HTN and HLD who presents with acute onset fatigue. - Infection: Covid negative, no recent travel or sick contacts no signs of infection process: normal WBC, no fever, chills. No cough, sputum, Normal CXR, excluding atypical Pneumonia. - Psych: no clinical signs of depression, has normal appetite, enjoys golfing on weekends, does not feel down or depressed. - Thyroid: normal TSH levels at 3.5. T4 not measured. Decreased cold tolerance. - Sleep: avg 5-6 hr/night, snores, naps during the day, wakes up occasionally during the night. Signs of TOBIAS. has not had a sleep study done. Plan: -evaluate t4 levels to get a better idea about thyroid function -order sleep study if patient is interested in being on a cpap -check ferritin levels -check D,b12 levels -Order Lyme test, start on doxycycline in the meantime. (2) DM type 2 (diabetes mellitus, type 2): higher than usual glucose levels the past several days. 200-300 @ home. 177 here. A1C 7.0. Glucose urea 3+. S.036. Trace ketones. Plan: Possibly due to physical stress. Continue metformin as we investigate cause of generalized fatigue (3) MIRANDA (dyspnea on exertion): Experiences SOB when walking short distances along with some chest discomfort. This does not seem to be a recent problem. Does have risk factors like HTN, HLD, DM2, Obesity, and smoking as well as a family hx of CAD. EKG shows PAC and some ST segment depressions. Troponin undetected xr. Crp negative. Repeat EKG does not seem to have depressd ST segments as noted on first EKG. PAC still there. Cardiac stress test normal. No chest pain, jaw pain, left arm pain. Less concerning if an ischemic process. Plan: Cardiology consulted. Reassuring stress test and labs. Continue to monitor overnight. (4) Hyperlipidemia: (5) Hypokalemia: Was hypokalemic at 3.1 which has elevated to 3.5 today. Plan: continue to monitor (6) HTN (hypertension): seems to be well controlled with medication. 131/83 today continue olmesartan-HCTZ Discharge Plan Discharge Items Patient Disposition: Home - Self-Care Reason For Visit: Shortness of breath, fatigue, fleeting chest pain Discharge Diagnosis: Shortness of breath, chest pain, fatigue, etc - resolved, exact etiology uncertain Condition on Discharge: Good Activity: As commented below Activity Comment: gradually increase activity over the next 3-5 days Non-emergency contact: Primary Care Provider Call non-emergency contact if: you have any medication questions, your symptoms worsen and you have a fever Follow-up/Referrals: Jerman Soriano MD [Primary Care Provider] - 04/04/20 11:30 am (see Dr Soriano within 5-7 days WILL SEE THAGN RENEE) Diet: Carb Consistent or DM2 and Heart Healthy Addtl Attending Provider Instructions: You were admitted to the hospital for a variety of complaints including shortness of breath, chest pain (you had such a few days prior to presentation), diarrhea, fatigue, and simply feeling unwell. Your blood sugars were high as well. The following were checked and were either normal or negative - * COVID-19 testing * vitamin B12 level * thyroid level (TSH) * blood cultures (looking for bacteria in your blood) * lyme testing * chest x-ray (no pneumonia) * urinalysis (no UTI) * stress echocardiogram test - negative, normal heart function * folate level * blood counts and kidney level * liver tests Your potassium level was mildly low - likely due to your water pill - but replaced and normal before discharge. I am not certain as to the exact cause of your symptoms. Possibilities include a nonspecific virus, a tickborne disease, or heart disease that was not picked up on your stress test. Recommendations: 1. while awaiting other tick-borne testing please take doxycycline 100mg twice daily for 13 more days * doxycycline can occasionally cause heartburn * it can also cause a rash if you go out in the sun while taking it; thus, cover up well over the next 2 weeks 2. thiamine 200mg twice daily for 30 days; this may help improve your memory 3. keep a log of any chest symptoms - chest pain (even if mild), shortness of breath, etc. If you continue with these symptoms please have Dr Soriano refer you to cardiology for additional testing. 4. follow-up Dr Soriano 5-7 days 5. STOP your combined benicar-HCT pill; your blood pressure has been normal without the HCTZ water pill portion; simply take benicar (olmesartan) 40mg once daily; new script sent to [facility] Return to [facility] if - * you have fevers over 100 degrees * you have worsening shortness of breath * you have worsening, recurrent chest pains * any other concerns Pending Studies at Discharge: Yes Studies:: Anaplasmosis and Ehrlichia testing (tick borne disease testing) Stand-Alone Forms: My [facility], Smoking Cessation Medications and DC Order Prescriptions: New doxycycline hyclate 100 mg Capsule 100 mg PO BID 13 Days Qty: 26 RF: 0 olmesartan [Benicar] 40 mg Tablet 40 mg PO DAILY Qty: 30 RF: 2 thiamine HCl (vitamin B1) 100 mg tablet 200 mg PO BID 30 Days Qty: 120 RF: 0 Continued metformin 500 mg tablet 1,000 mg PO BID Qty: 360 RF: 3 atorvastatin 40 mg tablet 40 mg PO QAM Qty: 90 RF: 3 (DME) lancets [OneTouch Delica Lancets] 30 gauge misc See Dose Instructions .ROUTE .MEDSUPPLY Qty: 25 RF: 0 (DME) OneTouch Verio test strips strip See Dose Instructions .ROUTE .MEDSUPPLY Qty: 10 RF: 0 allopurinol 300 mg tablet 300 mg PO QAM RF: 0 aspirin 81 mg Tablet,Delayed Release (Dr/Ec) 81 mg PO QAM Qty: 30 RF: 0 Discontinued tadalafil [Cialis] 5 mg tablet 5 mg PO DAILY PRN (Reason: sexual activity) Qty: 20 RF: 5 olmesartan-hydrochlorothiazide 40-25 mg tablet 1 tab PO DAILY RF: 0 Discharge Orders: Discharge Order (Routine); Ordered 03/30/20 Ordered By: Jerman Smith/Other Patient Handouts: Managing Type 2 Diabetes, Healthy Meals for Diabetes, Understanding Carbohydrates, Shortness of Breath Maximizing ..., Managing Your Glucose Level for ..., Diabetes: Meal Planning, ED Diet: Diabetes Admission Data Admit Date/Time: 03/28/20 23:52 Attending Provider: Jerman Barone Admit Provider: Melissa Alford Primary Care Provider: Jerman Soriano Other Providers: Melissa Alford Other Interventions: Discharge Summary Assessment (RN) Last Done: 03/30/20 11:55 DC Date/Time DO NOT enter until pt leaves facility: 03/30/20 13:18
--- NOTE | 2020-03-30 20:26 | Medical Student Progress Note ---
Date of Service March 30, 2020 Assessment & Plan (1) Fatigue: Mr. Riley is a 70 yo patient with a PMH sig for DM2 HTN and HLD who presents with acute onset fatigue. Doing better today. -Covid negative x2, no signs of infection process: normal WBC, no fever, chills. No cough, sputum, Normal CXR, no clinical signs of depression, normal TSH levels at 3.5. Normal vitamin D levels, negative lyme test, - Signs of TOBIAS Plan: -order sleep study if patient is interested in being on a cpap -check ferritin levels/ Iron study -check b12 levels -Rest of tickborn labs pending, already started on doxy (2) MIRANDA (dyspnea on exertion): Experiences SOB when walking short distances along with some chest discomfort. This does not seem to be a recent problem. Does have risk factors like HTN, HLD, DM2, Obesity, and smoking as well as a family hx of CAD. EKG shows PAC and some ST segment depressions. Troponin undetected xr. Crp negative. Repeat EKG does not seem to have depressd ST segments as noted on first EKG. PAC still there. Cardiac stress test normal yesterday. No chest pain, jaw pain, left arm pain. Patient experienced some chest pain during stress test, and was unble to reach HR goal of 85% of max HR. Chest pain has not reoccurred Plan: -PPI trial - Let pcp know about any chest pains, SOB symptoms, may need to see outpatient cardiology for more testing (3) DM type 2 (diabetes mellitus, type 2): 141 earlier today. 216 later today A1c 7.0 Plan: Continue insulin while inpatient. Back to metformin at home. Educate patient on checking sugras at home and making sure readings are accurate. 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 Will stop wince BP is doing well on Omlesartan alone. (6) HTN (hypertension): seems to be well controlled with Olmesartan alone without the HCTZ. 118/77 today Plan: Stop HCTZ. Continue with Olmesartan alone Hypertension type: essential hypertension Qualified Code(s): I10 - Essential (primary) hypertension Admission and Anticipated Discharge Date Admission Date: March 28, 2020 Subjective Mr. Riley says that he is feeling better today. He has not had epidods of chest pain of discomfort. No overnight events. Patient admits to some memory and forgetfulness problems that have been going on for a while. No SOB at rest or on exertion. No heart palpitations, difficulty breathing, n/v, diarrhea, con stipation, chills, fever, sweats, pre-syncope, syncope. Review of Systems Constitutional: + fatigue; no fever, no chills and no sweats Respiratory: no cough and no dyspnea Cardiovascular: no chest pain, no chest pain at rest, no chest pain with activity, no radiating jaw, neck or arm pain, no dyspnea, no dyspnea at rest, no dyspnea on exertion and no orthopnea Gastrointestinal: + diarrhea/loose stools; no nausea, no vomiting, no constipation and no blood in stools Neurologic: + generalized weakness; no gait abnormality, no falls, no localized weakness, no paralysis, no loss of sensation, no tingling, no numbness, no paresthesia, no lack of coordination, no radiating pain, no syncope and no headache(s) Psychiatric: no behavioral changes, no depression, no anhedonia, no change in appetite, no anxiety and no confusion Physical Exam Constitutional: well developed and well nourished; no acute distress Respiratory: normal respiratory effort; no labored breathing Auscultation: lungs clear to auscultation bilaterally; no crackles, no rhonchi and no wheezes Cardiovascular: Rate/Rhythm: regular rate and regular rhythm Heart Sounds: no gallop, no murmur and no cardiac rub Vessels: no JVD and no carotid bruit Extremities: no calf tenderness, no pedal edema and no edema Gastrointestinal (Abdomen): Inspection/Auscultation: abdomen normal to inspection; abdomen not distended Percussion/Palpation: abdomen nontender, no guarding and abdomen not rigid Psychiatric: Orientation: alert and oriented x 3 Apperance: appropriately dressed Eye Contact: good eye contact Speech: normal rate/rhythm/volume of speech Affect: euthymic affect Results & Data ([facility]) Vital Signs (Past 12 Hours) Vital Signs Temp Pulse Pulse Resp BP BP Pulse Ox 11/18/20 11:55 36.5 C 56 L 65 16 118/77 114/75 96
== END 2020-03-30 13:18 | disposition home or self-care (01) ==
LOC: 3N 19:23 → ED 19:23 → SUATTDRO 23:52 → 3N 03-29 01:30